=== PATIENT | male | born 1950 | race Caucasian/White ===

== ENCOUNTER → 2017-11-20 12:32 | Outpatient (CLI) | payer OTHER, SELFPAY ==
[2017-11-20 13:39] LABS: Uric Acid 9.5 mg/dL (3.5-8.5)
== END ==
PROVIDERS: PCP Internal Medicine; Visit Provider Podiatrist
DX: G62.1 Alcoholic polyneuropathy (principal); M10.9 Gout, unspecified; M79.671 Pain in right foot
CPT/HCPCS: 36415; 84550

== ENCOUNTER → 2018-05-20 13:40 | Outpatient (CLI) | payer OTHER, SELFPAY | PROVIDERS: PCP Internal Medicine; Visit Provider Internal Medicine | DX: I82.402 Acute embolism and thrombosis of unspecified deep veins of left lower extremity (principal) | CPT/HCPCS: 36415; 85610 ==

== ENCOUNTER → 2018-09-23 12:07 | Outpatient (CLI) | payer OTHER, SELFPAY ==
--- NOTE | 2018-09-23 | DI.RAD.S_ITS ---
PROCEDURE: XR CHEST 2V INDICATIONS: ACUTE BRONCHITIS TECHNIQUE: 2 views of the chest were acquired. COMPARISON: None. FINDINGS: Surgical changes and devices: None. Lungs and pleura: Lungs are clear. No pleural effusions or pneumothorax. Mediastinum: Mediastinal contours are normal. Heart size is normal. Bones and chest wall: No suspicious bony abnormalities. Soft tissues appear unremarkable. IMPRESSION: Normal chest. Dictated by: Jacquelyn Flores M.D. on 09/23/2018 at 14:02 Approved by: Jacquelyn Flores M.D. on 09/23/2018 at 14:02
== END ==
PROVIDERS: PCP Internal Medicine; Visit Provider Internal Medicine
DX: J20.9 Acute bronchitis, unspecified (principal)
CPT/HCPCS: 71046

== ENCOUNTER 2019-08-26 11:49 | Day surgery (SDC) | payer OTHER, SELFPAY ==
--- NOTE | 2019-08-26 | PATH_ITS ---
[facility] Accession Number: [id number] . 01 Material submitted: . PART A: colon - RIGHT COLON BIOPSIES PART B: colon - RIGHT COLON POLYP BIOPSY PART C: colon - TRANSVERSE COLON POLYP X2 PART D: colon - LEFT COLON POLYP BIOPSY X2 PART E: colon - LEFT COLON RANDOM BIOPSIES . 02 Diagnosis: A, E. Right Colon, Left Colon, Random Biopsies: Colonic mucosa with no diagnostic abnormality. Negative for active, chronic, and microscopic colitis. Negative for dysplasia and malignancy. . B. Right Colon, Polyp, Biopsy: Tubular adenoma. . C. Transverse Colon, Polyp x2, Biopsy: Tubular adenoma in 2 of 3 fragments. . D. Left Colon, Polyp x2, Biopsy: Tubular adenoma in 1 of 2 fragments. Benign lymphoid aggregate in 1 fragment. [facility] 08/27/2019 1542 Local . 02 Electronically signed: . Shi Murillo MD, Pathologist NPI- [id number] . 01 Gross description: . Part A: RIGHT COLON BIOPSIES: Received in formalin are 2 fragment(s) of jaeger, soft tissue measuring 0.2 x 0.2 x 0.2 cm to 0.4 x 0.3 x 0.2 cm submitted entirely in 1 cassette(s) Part B: RIGHT COLON POLYP BIOPSY: Received in formalin is 1 fragment(s) of jaeger, soft tissue measuring 0.3 x 0.3 x 0.2 cm submitted entirely in 1 cassette(s) Part C: TRANSVERSE COLON POLYP X2: Received in formalin are 3 fragment(s) of jaeger, soft tissue measuring 0.2 x 0.2 x 0.2 cm to 0.4 x 0.2 x 0.2 cm submitted entirely in 1 cassette(s) Part D: LEFT COLON POLYP BIOPSY X2: Received in formalin are 2 fragment(s) of jaeger, soft tissue measuring 0.1 x 0.1 x 0.1 cm to 0.3 x 0.2 x 0.2 cm submitted entirely in 1 cassette(s) Part E: LEFT COLON RANDOM BIOPSIES: Received in formalin are 3 fragment(s) of jaeger, soft tissue measuring 0.1 x 0.1 x 0.1 cm to 0.5 x 0.3 x 0.2 cm submitted entirely in 1 cassette(s) /[facility] 08/26/2019 2320 Local . 02 Pathologist provided ICD-10: D12.3, D12.6 . 02 CPT . 406059, 224551, [id number], [id number], [id number] Performed at: 01 [facility] [address] [id number] MD Jay Jay Flores MD Phone: [phone] Performed at: 02 [facility] [address] [place], [place] [id number] MD Shi Murillo MD Phone: [phone]
[2019-08-26 12:53] VITALS: BP 136/89; PULSE 73; RESP 17; TEMP 36.4; O2SAT 99; BMI 31.1
[2019-08-26] MEDS: SODIUM CHLORIDE 0.9% 1,000 ML 42 ML IV (13:00)
[2019-08-26] MEDS: MIDAZOLAM 5 MG/5 ML VIAL IV (13:48)
[2019-08-26] MEDS: fentaNYL 250 MCG/5 ML INJ IV (13:48)
--- NOTE | 2019-08-26 14:08 | PM.OP.ENDO ---
Operative Date/Time/Diagnoses Date of procedure: 08/26/19 Pre-op diagnosis: See indication and findings Procedure & Clinicians Study performed: Colonoscopy Same procedure as scheduled: Yes Indications: Loose stools rectal bleeding and history of adenomatous colon polyps Surgeon: Zoran Wray Procedure Notes Procedure in detail: After informed consent was obtained the patient was placed in left lateral decubitus position. The video colonoscope was introduced the rectum slowly advanced. This is passed to just above the IC valve. Cecum could not easily be entered. In addition there was substantial colitis in the right colon and I did not want wish any harder. Scope was then removed. Patient tolerated procedure well. Blood loss none Complications none Sedation Total sedation time 24 minutes Versed 7 mg fentanyl 150 mg IV titration Findings 1. Extensive petechial change throughout the right colon with sparing of the cecum and a small patch also seen in the midtransverse colon. No erosions were seen. While this was not in a ?cat scratch? like pattern is otherwise remind me of the features of that type of finding. Biopsies taken to rule out colitis 2. Random biopsies taken in normal-appearing left and sigmoid colon to rule out colitis 3. 8 mm right colon polyp cold snared removed completely and retrieved 4. Three transverse colon biopsies were seen. These were all removed with Jumbo biopsy forceps Five. Two left-sided colon polyps were seen. Both removed with Jumbo biopsy forceps. We will be following up on biopsy results with the patient. In particular be concerned about possible colitis versus just petechial and hemorrhagic change. His concerns his Coumadin I would really rather hold this for another 2-3 days given the extent of biopsies and polypectomies.
[2019-08-26 14:11] VITALS: BP 112/77; PULSE 81; RESP 12; TEMP 36.2; O2SAT 94
--- NOTE | 2019-08-26 14:13 | PM.HP.1 ---
History of Present Illness History of Present Illness Date Patient Seen: 08/26/19 Chief complaint: [id number] COLONOSCOPY W/POSS BX Narrative: History of adenomatous colon polyps with looser bloody bowel movements. Patient History Family & Social History Social History: household members spouse Tobacco & Substance use: Smoking Status Never smoker alcohol intake current alcohol intake frequency 3 or more drinks per day Substance Use Type marijuana Meds Home Medications and Allergies Home Medications Medication Instructions Recorded Confirmed Type atenolol 50 mg PO DAILY 08/26/19 08/26/19 History febuxostat 80 mg PO DAILY 08/26/19 08/26/19 History furosemide 20 mg PO DAILY 08/26/19 08/26/19 History lisinopril 10 mg PO DAILY 08/26/19 08/26/19 History rosuvastatin 20 mg PO DAILY 08/26/19 08/26/19 History warfarin 5 mg PO DAILY 08/26/19 08/26/19 History Allergies Allergy/AdvReac Type Severity Reaction Status Date / Time allopurinol Allergy Intermediate Verified 08/26/19 12:38 Exam Vital Signs (past 8 hours): - 08/26/19 12:53 Temperature 97.6 F Pulse Rate 73 Respiratory Rate 17 Blood Pressure 136/89 Pulse Oximetry 99 Oxygen Delivery Method Room Air Narrative Exam Narrative: Oropharynx free of lesion Chest clear to auscultation percussion Cardiac exam reveals no S3 or murmur Assessment & Plan Assessment & Plan narrative: History of adenomatous colon polyps need for follow-up colonoscopy for colorectal cancer screening History of loose stools with occasional bloody bowel movement rule out underlying colitis. Risks, benefits, alternatives have been explained. Further recommendations will follow the results of the colonoscopy.
[2019-08-26 14:16] VITALS: BP 104/73; PULSE 77; RESP 13; TEMP 36.4; O2SAT 92
[2019-08-26 14:22] VITALS: BP 97/64; PULSE 81; RESP 18; TEMP 36.4; O2SAT 91
[2019-08-26 14:26] VITALS: BP 96/66; PULSE 94; RESP 25; TEMP 36.4; O2SAT 97
[2019-08-26 14:57] VITALS: BP 110/59; PULSE 89; RESP 22; TEMP 36.6; O2SAT 98
--- NOTE | 2019-08-26 15:48 | SUR.PHASEII ---
Coumadin order claified, pt to take in 3 days and any bleeding needs to be called to the office. Pt voiced an understanding, pt left when ready and left in stable condition.
== END 2019-08-26 15:10 | disposition home or self-care (01) ==
PROVIDERS: PCP Internal Medicine; Referring Provider Internal Medicine; Visit Provider Internal Medicine Gastroenterology
PROC: 0DJD8ZZ Inspection of Lower Intestinal Tract, Via Natural or Artificial Opening Endoscopic (ICD-10-PCS; CPT 45378; principal; 2019-08-26 13:30)
DX: K62.5 Hemorrhage of anus and rectum (principal); R19.7 Diarrhea, unspecified; D12.3 Benign neoplasm of transverse colon; D12.6 Benign neoplasm of colon, unspecified
CPT/HCPCS: 45380; J2250; J3010

== ENCOUNTER → 2020-04-14 16:33 | Outpatient (ROUT) | payer OTHER, SELFPAY ==
[2020-04-14 17:09] LABS: Add Manual Diff / Slide Review NO; Basophils Absolute Auto 0 /uL (0-100); Basophils Percent Auto 0.5 % (0-2); Eosinophils Absolute Auto 200 /uL (0-450); Eosinophils Percent Auto 2.9 % (2-4); Hemoglobin 13.9 g/dL (13.5-17.5); Lymphocytes Absolute Auto 2100 /uL (1100-4500); Lymphocytes Percent Auto 36.2 % (25-40); Mean Corpuscular HGB Conc 33.8 % (30-36); Mean Corpuscular Volume 97.6 fL (80-100); Monocytes Absolute Auto 600 /uL (0-900); Monocytes Percent Auto 10.1 % (3-14); Neutrophils Absolute Auto 3000 /uL (1500-7000); Neutrophils Percent Auto 50.3 % (50-75); Platelet Count 210 X10^3/uL (150-400); Red Cell Distribution Width 13.9 % (11.6-14.8); White Blood Cell Count 5.9 X10^3/uL (4.5-11.0)
[2020-04-14 17:48] LABS: Aspartate Aminotransferase 32 IU/L (17-59); BUN Creatinine Ratio 24.5 (6-22); Blood Urea Nitrogen 35 mg/dL (9-20); Calcium 8.6 mg/dL (8.4-10.2); Carbon Dioxide 28 mmol/L (22-32); Chloride 104 mmol/L (98-107); Cholesterol 179 mg/dL (140-199); Estimated Glomerular Filt Rate 48.8 mL/min (>60); Glucose 99 mg/dL (80-110); HDL Cholesterol 68 mg/dL (40-60); HEMOLYSIS < 15 (0-50); LDL Cholesterol Calculated 63 mg/dL (<100); Potassium 4.8 mmol/L (3.4-5.1); Sodium 137 mmol/L (137-145); Triglycerides 241 mg/dL (35-150); Uric Acid 3.8 mg/dL (3.5-8.5)
[2020-04-14 18:17] LABS: Prostate Specific Antigen 4.13 ng/mL (0.10-4.00)
== END ==
PROVIDERS: PCP Internal Medicine; Visit Provider Internal Medicine
DX: Z86.010 Personal history of colon polyps (principal); I10 Essential (primary) hypertension; E78.2 Mixed hyperlipidemia; N40.0 Benign prostatic hyperplasia without lower urinary tract symptoms; M10.9 Gout, unspecified
CPT/HCPCS: 80048; 80061; 84153; 84450; 84550; 85025

== ENCOUNTER → 2021-03-15 10:56 | Outpatient (CLI) | payer OTHER, SELFPAY ==
--- NOTE | 2021-03-15 | DI.RAD.S_ITS ---
PROCEDURE: XR LUMBAR SPINE 2-3V INDICATIONS: LOW BACK PAIN TECHNIQUE: 3 views of the lumbar spine were acquired. COMPARISON: None. FINDINGS: Bones: There appears to be a transitional element at S1. There is normal bony alignment. Mild wedging of L5, of uncertain acuity. No acute vertebral body compression fractures. No suspicious bony lesions. Multilevel endplate osteophyte formation and facet hypertrophy. Soft tissues: Overlying bowel gas pattern is normal. No suspicious soft tissue calcifications. IMPRESSION: 1. Mild L5 compression fracture of uncertain acuity. Initial further assessment with MRI is recommended. 2. Multilevel degenerative disc and facet disease. 3. Transitional element at S1. Dictated by: Jose F Ruff M.D. on 03/15/2021 at 12:22 Approved by: Jose F Ruff M.D. on 03/15/2021 at 12:23
== END ==
PROVIDERS: PCP Internal Medicine; Referring Provider Internal Medicine; Visit Provider Internal Medicine
DX: M54.5 Low back pain (principal); M48.56XA Collapsed vertebra, not elsewhere classified, lumbar region, initial encounter for fracture; M51.36 Other intervertebral disc degeneration, lumbar region
CPT/HCPCS: 72100

== ENCOUNTER → 2021-06-10 12:34 | Outpatient (CLI) | payer OTHER, SELFPAY ==
--- NOTE | 2021-06-10 | DI.MRI.S_ITS ---
PROCEDURE: MR LUMBAR SPINE WO CON INDICATIONS: Wedge compression fracture of fifth lumbar vertebr TECHNIQUE: Noncontrast sagittal T1 spin echo and T2 fast echo, sagittal STIR, axial T1 and T2 fast spin echo through the lumbar spine. In cases with scoliosis, additional coronal T2 fast spin echo may be performed. COMPARISON: None. FINDINGS: Image quality: Excellent. Alignment and Curvature: There is normal bony alignment. Bones: Acute/subacute L4 compression fracture noted. L4 compression fracture results in approximately 70% loss of normal anterior vertebral body height. Spinal Cord: Conus medullaris terminates at the L1 level. There is a 6 millimeter nodule associated with the cauda equina at the level of the L1-L2 disc. Visualized cord demonstrates normal signal and size. Paraspinous Soft Tissues: No paravertebral masses. T12-L1: Loss of disc signal and slight loss of disc height. Mild, diffuse disc bulge. Mild, bilateral facet hypertrophy. Mild narrowing of the central canal. No neural foraminal narrowing. No neural compression. L1-L2: Loss of disc signal. Mild, diffuse disc bulge. Mild bilateral facet hypertrophy. Mild narrowing of the central canal. No neural foraminal narrowing. No neural compression. L2-L3: Loss of disc signal and height. Moderate, diffuse disc bulge. Mild bilateral facet hypertrophy. Moderate ligamentum flavum hypertrophy. Severe narrowing of the central canal with compression of the nerve roots of the cauda equina. Mild to moderate bilateral neural foraminal narrowing. L3-L4: Loss of disc signal. Mild to moderate diffuse disc bulge. Small central disc protrusion. Mild to moderate bilateral facet hypertrophy. Mild ligamentum flavum hypertrophy. Severe narrowing of the central canal with compression of the nerve roots of the cauda equina. Mild to moderate bilateral neural foraminal narrowing. L4-L5: Loss of disc signal. Minimal, diffuse disc bulge. Severe bilateral facet hypertrophy. Moderate to severe narrowing of the central canal. Mild bilateral neural foraminal narrowing. No neural compression L5-S1: Loss of disc signal and height. Mild to moderate bilateral facet hypertrophy. No central stenosis. Mild bilateral neural foraminal narrowing. No neural compression. IMPRESSION: 1. Acute/subacute L4 compression fracture resulting in approximately 70% loss of normal anterior vertebral body height. 2. Multilevel degenerative disc disease. 3. Multilevel facet arthropathy. 4. Severe L2-L3 and L3-L4 central canal narrowing with compression of the nerve roots of the cauda equina. 5. No severe neural foraminal narrowing. 6. 6 millimeter nodule in the cauda equina at the level of the L1-L2 disc. Lesion may represent nerve sheath tumor such as meningioma or schwannoma or could represent a metastatic lesion. Recommend MRI of the lumbar spine with gadolinium for additional evaluation. Dictated by: Dorota Witt MD, PhD on 06/12/2021 at 8:30 Approved by: Dorota Witt MD, PhD on 06/12/2021 at 9:03
== END ==
PROVIDERS: PCP Internal Medicine; Referring Provider Internal Medicine; Visit Provider Internal Medicine
DX: S32.050D Wedge compression fracture of fifth lumbar vertebra, subsequent encounter for fracture with routine healing (principal); M51.36 Other intervertebral disc degeneration, lumbar region; M47.816 Spondylosis without myelopathy or radiculopathy, lumbar region; M47.817 Spondylosis without myelopathy or radiculopathy, lumbosacral region; M48.061 Spinal stenosis, lumbar region without neurogenic claudication
CPT/HCPCS: 72148

== ENCOUNTER → 2021-09-26 12:37 | Outpatient (CLI) | payer OTHER, SELFPAY | PROVIDERS: Family Provider Internal Medicine; PCP Internal Medicine; Referring Provider Internal Medicine; Visit Provider Internal Medicine | DX: M85.851 Other specified disorders of bone density and structure, right thigh (principal); Z13.820 Encounter for screening for osteoporosis; M84.48XS Pathological fracture, other site, sequela; Z87.311 Personal history of (healed) other pathological fracture | CPT/HCPCS: 77080 ==

== ENCOUNTER 2021-09-29 10:30 | Outpatient (RCR) | payer OTHER, SELFPAY ==
--- NOTE | 2021-08-17 17:36 | PT.OIE ---
Current Diagnoses Postural kyphosis, site unspecified (08/17/21) Muscle weakness (generalized) (08/17/21) Wedge compression fracture of fourth lumbar vertebra, subsequent encounter for fracture with routine healing (08/17/21) Strain of muscle, fascia and tendon of lower back, initial encounter (08/17/21) Visit Care Team Role Provider Type Porter Munoz MD Primary Care Provider Non-Staff Specialty: Internal Medicine Address: [address] [place] [address], [phone] Email: Chris Reyes MD Family Provider Physician Specialty: Internal Medicine Address: [address] [place] [address], [id number] Email: [email or web address] Iglesia Anguiano MD Attending Provider Physician Referring Provider Specialty: Orthopedic Surgery Address: [address] [place] [address], [id number] Email: Physical Therapy Initial Evaluation PT-OP-A Visit Information Start: 08/15/21 18:13 Freq: Status: Active Protocol: Document 08/17/21 10:37 LRN (Rec: 08/17/21 11:27 LRN [id number]) Out-Patient Physical Therapy Visit Information Visit Information Visit Type Initial Evaluation Visit Start Time 10:37 Visit Stop Time 11:24 Total Visit Minutes 47 Visit Number 1 Evaluation Information Evaluation Date 08/17/21 Precautions Precautions Lesion at Caudia Equina at level of L1-L2 discs and compression of nerve roots and severe narrowing of central canal at L2-3, L3-L4. Compression fracture history L4 & L5, and multi-level lumbar DDD. 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 PT-OP-B Current Condition Start: 08/15/21 18:13 Freq: Status: Active Protocol: Document 08/17/21 10:37 LRN (Rec: 08/17/21 11:27 LRN [id number]) Current Condition History of Current Condition Onset Date Mar Current Complaints Discomfort sleeping. History of Current Condition Slipped and fell on tile floor at home landing on buttocks and suffered compression fracture of L5. Was expecting pain to resolve a couple months, but it didn't. Then requested either MRI or PT. Doctor didn't do either. Pain decreased over time but did not go away. Sought further medical intervention due to discomfort at nighttime (sleep disturbed). Was referred to Dr. Anguiano and states MRI showed increased compression of fx and that old fx was healed. No nerve involvement but found spinal stenosis; therefore nerve impingement. Because he has discomfort in the back it's thought the muscles hadn't relaxed; therefore referred to PT to help decrease the pain. Is to return to Dr Anguiano in 1 month. Prior Treatments and Tests X-ray showed L5 compression fracture, multi-level DDD, transitional element at S1. Given Pain meds. MRI showed Acute/subacute L4 compression fracture, multi- level DDD, facet arthropathy, Severe L2-L3 and L3-L4 central canal narrowing with compression of the nerve roots of the cauda equina. 6 millimeter nodule in the cauda equina at the level of the L1 -L2 disc. Lesion may represent nerve sheath tumor such as meningioma or schwannoma or could represent a metastatic lesion. Future Testing and Treatments Planned Dr. Anguiano follow up visit , after 3-4 treatments. Treatment Goals Patient/Caregiver Goals Pt goal is to be able to sleep better. Prior Functional Status Baseline Function- ADL's Independent Baseline Function- Mobility Independent Baseline Function- Other Gets up a couple times a night . Slept solidly for 3 hours at a time, slept for 7-8 hrs. Lifted sacks of garden soil. Current Functional Impairments (Reported) Functional Limitations- ADL's Wakes and turns side to side every hour, 7-8 hrs. Gets up to go to bathroom 3x/ night Avoids lifting things. Personal Factors Other Personal Factors That May Effect Lesion at Caudia Equina at Therapy/Recovery level of L1-L2 discs and compression of nerve roots and severe narrowing of central canal at L2-3, L3-L4. Compression fracture history L4 & L5, and multi-level lumbar DDD. PT-OP-C Subjective Start: 08/15/21 18:13 Freq: Status: Active Protocol: Document 08/17/21 10:37 LRN (Rec: 08/17/21 11:27 LRN [id number]) Patient Questionnaires Oswestry Low Back Index Oswestry Score 4 Oswestry Impairment 1 to 19% Impaired (Score 1-19) OP-PT Pain Assessment Pain Assessment Grid Paper Pain Assessment Grid Completed Yes Location Low back Pain Location Details Across low back at level of iliac crest & sacrum Intensity 1 Scale Used Numeric (0 - 10) Description Aching,Dull Description- Other At nighttime (sleeps side) Frequency Intermittent Pain Duration Once up in morning, lasts for short duration. Other Pain Aggravating Factors Nighttime sleeping, intial standing Other Pain Alleviating Factors Lying sidelie PT-OP-H Neuro Start: 08/15/21 18:13 Freq: Status: Active Protocol: Document 08/17/21 10:37 LRN (Rec: 08/17/21 11:27 LRN [id number]) Sensation Evaluation Gross Sensation Gross Sensation WNL Comments Summary Comments Decreased sensation with tingling in top part & front distal 1/2 of feet and toes. PT-OP-J Posture/Palpation/Skin Start: 08/15/21 18:13 Freq: Status: Active Protocol: Document 08/17/21 10:37 LRN (Rec: 08/17/21 11:27 LRN [id number]) Posture Evaluation Position Standing Head/C-Spine Posture Forward Head T-Spine Posture Increased Kyphosis L-Spine Posture Flattened Shoulder Posture (L) Elevated Pelvis Posture Posterior Tilted Weight Distribution Weight Shifted Left Hip Posture (R) Externally Rotated Comments Posture Comments Sits slumped with R leg extended. Standing: Hips flexed 90 deg' s. Palpation Assessment Location Low Back Palpation Location QL, Posterior Sacrum Palpation Findings Tenderness PT-OP-K Range of Motion Start: 08/15/21 18:13 Freq: Status: Active Protocol: Document 08/17/21 10:37 LRN (Rec: 08/17/21 11:27 LRN [id number]) Lumbar Spine Range of Motion Lumbar Spine Active Degrees Testing Position Standing Flexion 72 Extension 7 Rotation Left 5 Rotation Right 5 Lateral Flexion Left 10 Lateral Flexion Right 10 ROM Limitations Soft Tissue Tightness Comments Trunk Flex is 72 deg's with 65 deg's hip flexion. Trunk Ext is 7 deg's with 7 deg's hip ext. Hip Goniometric Range of Motion Hip Right Passive Testing Position Supine Straight Leg Raise 85 Internal Rotation 35 External Rotation 65 Left Passive Testing Position Supine Straight Leg Raise 75 Internal Rotation 50 External Rotation 40 PT-OP-L Special Tests Start: 08/15/21 18:13 Freq: Status: Active Protocol: Document 08/17/21 10:37 LRN (Rec: 08/17/21 11:27 LRN [id number]) Special Tests Lumbar Spine Special Tests Straight Leg Raise Test Results 85 R, 75 L Hip Special Tests Gustabo Test Results Bilateral: Positive Comments Tight hip flexors bilaterally. PT-OP-M Strength Start: 08/15/21 18:13 Freq: Status: Active Protocol: Document 08/17/21 10:37 LRN (Rec: 08/17/21 11:27 LRN [id number]) Trunk Strength Trunk Manual Muscle Testing Testing Position Sitting Comments Generally 5/5 Hip Strength Hip Manual Muscle Testing Right Abduction 3 Fair Adduction 3 Fair External Rotation 5 Normal Internal Rotation 5 Normal Comments Pain in LB with hip AD MMT Left Abduction 3 Fair Adduction 4 Good External Rotation 5 Normal Internal Rotation 5 Normal Comments Pain in LB with hip AD MMT PT-OP-Q Treatments Start: 08/15/21 18:13 Freq: Status: Active Protocol: Document 08/17/21 10:37 LRN (Rec: 08/17/21 11:27 LRN [id number]) Self-Care/Home Management Treatment Education Other Education Discussed results of evaluation, plan of care and goals. Pt agreeable to plan of care and goals. PT-OP-T Assessment and Plan Start: 08/15/21 18:13 Freq: Status: Active Protocol: Document 08/17/21 10:37 LRN (Rec: 08/17/21 11:27 LRN [id number]) Physical Therapy Assessment Rehab Potential Rehabilitation Potential Good Evaluation Complexity Number of Personal Factors/Comorbidities 1-2 Number of Body Systems Impaired 4 or More Clinical Presentation at Evaluation Evolving Impairments Impairments Activity Tolerance,Pain,ROM, Strength Goals Two Impairment Sleep disturbed, toss and turns every hour. Impairment LBP rated 1/10 at night and on standing after sitting awhile . Short Term Goal (STG) Pt will be educated in different nighttime sleep positions and proper posture to minimize pain at night, as well as proper daily posture in sitting & standing. Senior Living Goal (LTG) Decrease low back pain in sidelie with pt able to sleep for no less than 2 hours at a time for 7-8 hrs total unless waking for reasons other than LBP. One Impairment Pt lacks appropriate self care HEP Short Term Goal (STG) Pt will be educated in proper transfer & body mechanics to minimize onset of LBP. Senior Living Goal (LTG) Pt will be independent in a self care HEP to improve lumbar ext & hip ext mobility, general lumbar/thoracic/hip mobility, and core/hip strengthening. Assessment Summary Assessment Pt presents with mechanical and soft tissue dysfunction of the lumbar spine and bilateral hips. His low back pain may be posturally related , with a flattened lumbar spine and increased kyphosis and forward head positioning. He does have other imaging that would indicate compression of the cauda equina nerve roots and an unknown lesion at L-L2 disc level (see MRI report of 06/10). He has decreased hip mobility in his hip flexors and hip rotators that increases his propensity towards poor posturing. The pt will benefit from skilled physical therapy for mobility ex's for the back and hips; HEP stengthening of core/hips, pt education in proper posturing in all positions, and transfer/body mechanics training. Physical Therapy Plan Frequency and Duration Frequency of Treatment 2x/Week Plan of Care Start Date 08/17/21 Plan of Care End Date 10/16/21 Therapeutic Interventions Therapeutic Interventions Home Exercise Program,Manual Therapy,Neuromuscular Re- education,Patient/Caregiver Education,Self-Care/Home Management,Soft Tissue Mobilization,Therapeutic Activities,Therapeutic Exercises Modalities Cold Pack/Ice Massage,Hot Packs Next Visit Focus/Plan Next Note Type Treatment Note Next Visit Plan Educate in proper transfer & body mechanics to minimize onset of LBP. Educate in different nighttime sleep positions and proper posture to minimize pain at night, as well as proper daily posture in sitting & standing . HEP: Mobility: trunk ext, hip ext, hip ER (L>R), L hip IR and L PSLR. HEP: Strengthening: core, hip (alvina AB, R AD) STM: LB Modalities as needed for pain (ice, heat).
--- NOTE | 2021-08-17 17:37 | PT.OPPOC ---
Physical, Occupational & Speech Therapy At [facility] Current Diagnoses Postural kyphosis, site unspecified (08/17/21) Muscle weakness (generalized) (08/17/21) Wedge compression fracture of fourth lumbar vertebra, subsequent encounter for fracture with routine healing (08/17/21) Strain of muscle, fascia and tendon of lower back, initial encounter (08/17/21) Visit Care Team Role Provider Type Porter Munoz MD Primary Care Provider Non-Staff Specialty: Internal Medicine Address: [address] [place] [address], [id number] Email: Chris Reyes MD Family Provider Physician Specialty: Internal Medicine Address: [address] [place] [address], [id number] Email: [email or web address] Iglesia Anguiano MD Attending Provider Physician Referring Provider Specialty: Orthopedic Surgery Address: [address] [place] [address], [id number] Email: Plan Of Care PT-OP-T Assessment and Plan Start: 08/15/21 18:13 Freq: Status: Active Protocol: Document 08/17/21 10:37 LRN (Rec: 08/17/21 11:27 LRN [id number]) Physical Therapy Assessment Rehab Potential Rehabilitation Potential Good Evaluation Complexity Number of Personal Factors/Comorbidities 1-2 Number of Body Systems Impaired 4 or More Clinical Presentation at Evaluation Evolving Impairments Impairments Activity Tolerance,Pain,ROM, Strength Goals Two Impairment Sleep disturbed, toss and turns every hour. Impairment LBP rated 1/10 at night and on standing after sitting awhile . Short Term Goal (STG) Pt will be educated in different nighttime sleep positions and proper posture to minimize pain at night, as well as proper daily posture in sitting & standing. Home Advisor Goal (LTG) Decrease low back pain in sidelie with pt able to sleep for no less than 2 hours at a time for 7-8 hrs total unless waking for reasons other than LBP. One Impairment Pt lacks appropriate self care HEP Short Term Goal (STG) Pt will be educated in proper transfer & body mechanics to minimize onset of LBP. Senior Care Goal (LTG) Pt will be independent in a self care HEP to improve lumbar ext & hip ext mobility, general lumbar/thoracic/hip mobility, and core/hip strengthening. Assessment Summary Assessment Pt presents with mechanical and soft tissue dysfunction of the lumbar spine and bilateral hips. His low back pain may be posturally related , with a flattened lumbar spine and increased kyphosis and forward head positioning. He does have other imaging that would indicate compression of the cauda equina nerve roots and an unknown lesion at L-L2 disc level (see MRI report of 06/10). He has decreased hip mobility in his hip flexors and hip rotators that increases his propensity towards poor posturing. The pt will benefit from skilled physical therapy for mobility ex's for the back and hips; HEP stengthening of core/hips, pt education in proper posturing in all positions, and transfer/body mechanics training. Physical Therapy Plan Frequency and Duration Frequency of Treatment 2x/Week Plan of Care Start Date 08/17/21 Plan of Care End Date 10/16/21 Therapeutic Interventions Therapeutic Interventions Home Exercise Program,Manual Therapy,Neuromuscular Re- education,Patient/Caregiver Education,Self-Care/Home Management,Soft Tissue Mobilization,Therapeutic Activities,Therapeutic Exercises Modalities Cold Pack/Ice Massage,Hot Packs Next Visit Focus/Plan Next Note Type Treatment Note Next Visit Plan Educate in proper transfer & body mechanics to minimize onset of LBP. Educate in different nighttime sleep positions and proper posture to minimize pain at night, as well as proper daily posture in sitting & standing . HEP: Mobility: trunk ext, hip ext, hip ER (L>R), L hip IR and L PSLR. HEP: Strengthening: core, hip (alvina AB, R AD) STM: LB Modalities as needed for pain (ice, heat). Plan of Care Dates Plan of Care Start Date 08/17/21 Plan of Care End Date 10/16/21 Electronically Signed by: María Wood, PT 08/17/21 0465 Please Sign and Return: I have reviewed this Plan of Care and certify that the skilled therapy services above are required to meet the patient?s needs. Physician Signature Date Printed Name and Credentials Clinical Instructor Signature Printed Name and Credentials
--- NOTE | 2021-08-25 12:55 | PT.OTN ---
Current Diagnoses Postural kyphosis, site unspecified (08/25/21) Muscle weakness (generalized) (08/25/21) Wedge compression fracture of fourth lumbar vertebra, subsequent encounter for fracture with routine healing (08/25/21) Strain of muscle, fascia and tendon of lower back, initial encounter (08/25/21) Physical Therapy Treatment Note PT-OP-A Visit Information Start: 08/15/21 18:13 Freq: Status: Active Protocol: Document 08/25/21 11:57 LRN (Rec: 08/25/21 12:54 LRN [id number]) Out-Patient Physical Therapy Visit Information Visit Information Visit Type Treatment Note Visit Start Time 11:58 Visit Stop Time 12:38 Total Visit Minutes 40 Visit Number 2 Evaluation Information Evaluation Date 08/17/21 Precautions Precautions Lesion at Caudia Equina at level of L1-L2 discs and compression of nerve roots and severe narrowing of central canal at L2-3, L3-L4. Compression fracture history L4 & L5, and multi-level lumbar DDD. 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 PT-OP-B Current Condition Start: 08/15/21 18:13 Freq: Status: Active Protocol: Document 08/17/21 10:37 LRN (Rec: 08/17/21 11:27 LRN [id number]) Current Condition History of Current Condition Onset Date Mar Current Complaints Discomfort sleeping. History of Current Condition Slipped and fell on tile floor at home landing on buttocks and suffered compression fracture of L5. Was expecting pain to resolve a couple months, but it didn't. Then requested either MRI or PT. Doctor didn't do either. Pain decreased over time but did not go away. Sought further medical intervention due to discomfort at nighttime (sleep disturbed). Was referred to Dr. Anguiano and states MRI showed increased compression of fx and that old fx was healed. No nerve involvement but found spinal stenosis; therefore nerve impingement. Because he has discomfort in the back it's thought the muscles hadn't relaxed; therefore referred to PT to help decrease the pain. Is to return to Dr Anguiano in 1 month. Prior Treatments and Tests X-ray showed L5 compression fracture, multi-level DDD, transitional element at S1. Given Pain meds. MRI showed Acute/subacute L4 compression fracture, multi- level DDD, facet arthropathy, Severe L2-L3 and L3-L4 central canal narrowing with compression of the nerve roots of the cauda equina. 6 millimeter nodule in the cauda equina at the level of the L1 -L2 disc. Lesion may represent nerve sheath tumor such as meningioma or schwannoma or could represent a metastatic lesion. Future Testing and Treatments Planned Dr. Anguiano follow up visit , after 3-4 treatments. Treatment Goals Patient/Caregiver Goals Pt goal is to be able to sleep better. Prior Functional Status Baseline Function- ADL's Independent Baseline Function- Mobility Independent Baseline Function- Other Gets up a couple times a night . Slept solidly for 3 hours at a time, slept for 7-8 hrs. Lifted sacks of garden soil. Current Functional Impairments (Reported) Functional Limitations- ADL's Wakes and turns side to side every hour, 7-8 hrs. Gets up to go to bathroom 3x/ night Avoids lifting things. Personal Factors Other Personal Factors That May Effect Lesion at Caudia Equina at Therapy/Recovery level of L1-L2 discs and compression of nerve roots and severe narrowing of central canal at L2-3, L3-L4. Compression fracture history L4 & L5, and multi-level lumbar DDD. PT-OP-C Subjective Start: 08/15/21 18:13 Freq: Status: Active Protocol: Document 08/25/21 11:57 LRN (Rec: 08/25/21 12:54 LRN [id number]) OP-PT Subjective Patient Comments Patient Reported Progress Same PT-OP-H Neuro Start: 08/15/21 18:13 Freq: Status: Active Protocol: Document 08/17/21 10:37 LRN (Rec: 08/17/21 11:27 LRN [id number]) Sensation Evaluation Gross Sensation Gross Sensation WNL Comments Summary Comments Decreased sensation with tingling in top part & front distal 1/2 of feet and toes. PT-OP-J Posture/Palpation/Skin Start: 08/15/21 18:13 Freq: Status: Active Protocol: Document 08/17/21 10:37 LRN (Rec: 08/17/21 11:27 LRN [id number]) Posture Evaluation Position Standing Head/C-Spine Posture Forward Head T-Spine Posture Increased Kyphosis L-Spine Posture Flattened Shoulder Posture (L) Elevated Pelvis Posture Posterior Tilted Weight Distribution Weight Shifted Left Hip Posture (R) Externally Rotated Comments Posture Comments Sits slumped with R leg extended. Standing: Hips flexed 90 deg' s. Palpation Assessment Location Low Back Palpation Location QL, Posterior Sacrum Palpation Findings Tenderness PT-OP-K Range of Motion Start: 08/15/21 18:13 Freq: Status: Active Protocol: Document 08/17/21 10:37 LRN (Rec: 08/17/21 11:27 LRN [id number]) Lumbar Spine Range of Motion Lumbar Spine Active Degrees Testing Position Standing Flexion 72 Extension 7 Rotation Left 5 Rotation Right 5 Lateral Flexion Left 10 Lateral Flexion Right 10 ROM Limitations Soft Tissue Tightness Comments Trunk Flex is 72 deg's with 65 deg's hip flexion. Trunk Ext is 7 deg's with 7 deg's hip ext. Hip Goniometric Range of Motion Hip Right Passive Testing Position Supine Straight Leg Raise 85 Internal Rotation 35 External Rotation 65 Left Passive Testing Position Supine Straight Leg Raise 75 Internal Rotation 50 External Rotation 40 PT-OP-L Special Tests Start: 08/15/21 18:13 Freq: Status: Active Protocol: Document 08/17/21 10:37 LRN (Rec: 08/17/21 11:27 LRN [id number]) Special Tests Lumbar Spine Special Tests Straight Leg Raise Test Results 85 R, 75 L Hip Special Tests Gustabo Test Results Bilateral: Positive Comments Tight hip flexors bilaterally. PT-OP-M Strength Start: 08/15/21 18:13 Freq: Status: Active Protocol: Document 08/17/21 10:37 LRN (Rec: 08/17/21 11:27 LRN [id number]) Trunk Strength Trunk Manual Muscle Testing Testing Position Sitting Comments Generally 5/5 Hip Strength Hip Manual Muscle Testing Right Abduction 3 Fair Adduction 3 Fair External Rotation 5 Normal Internal Rotation 5 Normal Comments Pain in LB with hip AD MMT Left Abduction 3 Fair Adduction 4 Good External Rotation 5 Normal Internal Rotation 5 Normal Comments Pain in LB with hip AD MMT PT-OP-Q Treatments Start: 08/15/21 18:13 Freq: Status: Active Protocol: Document 08/25/21 11:57 LRN (Rec: 08/25/21 12:54 LRN [id number]) Therapeutic Exercises Supine Exercises Bridge Supine Exercise Name Bridge Reps/Minutes 3x Piriformis stretch Supine Exercise Name Piriformis stretch Side bilateral Reps/Minutes 2x left, 1x right Comments Extra time to determine max stretch position Fig 4 stretch Supine Exercise Name Fig 4 stretch f/b active stretch Side bilateral Reps/Minutes 2x left, 1x right Comments Extra time to determine max stretch position Sidelying Exercises Clamshell Sidelying Exercise Name Clamshell Side bilateral Reps/Minutes 15x, 10x Comments Extra time to determine proper postion Standing Exercises Hip flexor stretch Standing Exercise Name Hip Flexor stretch, f/b active stretch Side bilateral Reps/Minutes 1x each Comments Extra time to determine proper stance and max passive & active stretch Other Exercises sit<>supine training Other Exercise Name sit<>supine training Reps/Minutes 5' Sit<>stand training Other Exercise Name Sit<>stand training Reps/Minutes 5' Self-Care/Home Management Treatment Education Patient Education Home Exercise Program Other Education Pt educated and instructions given and practiced for: Transfer training sit<>supine, sit<>stand. Proper body mechanics for bending, squatting, lifting ( front and at sides-moving feet ), and reaching. Educated pt in modifications to positioning to help decrease pain at night ( pillows between knees and support in back). Activities Self-Care/Home Management Activities Issued & reviewed HEP: Stretches: Fig 4, Piriformis stretch (knee to opposite shoulder), lateral hip stretch . Strengthening: Hip AB ( Clamshell). PT-OP-T Assessment and Plan Start: 08/15/21 18:13 Freq: Status: Active Protocol: Document 08/25/21 11:57 LRN (Rec: 08/25/21 12:54 LRN [id number]) Physical Therapy Assessment Goals Two Impairment Sleep disturbed, toss and turns every hour. Impairment LBP rated 1/10 at night and on standing after sitting awhile . Short Term Goal (STG) Pt will be educated in different nighttime sleep positions and proper posture to minimize pain at night, as well as proper daily posture in sitting & standing. STG Duration 08/25/21: MET GOAL Special Needs Caregiver Goal (LTG) Decrease low back pain in sidelie with pt able to sleep for no less than 2 hours at a time for 7-8 hrs total unless waking for reasons other than LBP. One Impairment Pt lacks appropriate self care HEP Short Term Goal (STG) Pt will be educated in proper transfer & body mechanics to minimize onset of LBP. (08/25/21: Transfer training sit<>supine, sit<>stand. Proper body mechanics for bending, squatting, lifting ( front and at sides-moving feet ), and reaching. STG Duration MET GOAL Special Needs Caregiver Goal (LTG) Pt will be independent in a self care HEP to improve lumbar ext & hip ext mobility, general lumbar/thoracic/hip mobility, and core/hip strengthening. (08/25/21: Stretches: Fig 4, Piriformis stretch (knee to opposite shoulder), lateral hip stretch. Strengthening: Hip AB (Clamshell). LTG Duration 08/25/21: Progressed Assessment Summary Assessment Pt has mechanical and soft tissue dysfunction of the lumbar spine and bilateral hips. He was receptive to pt education in proper transfer, sitting posture, nighttime sleeping recommendations, body mechanics education and HEP of hip ROM and strengthening ex's. Pt is very quiet and difficulty to assess comprehension of information. Physical Therapy Plan Next Visit Focus/Plan Next Note Type Treatment Note Next Visit Plan Review transfer sit<>stand<> supine, & and understanding of proper body mechanics, and issued HEP (clamshell, hip ER/ Piriformis stretch). Assess response to recommendations of use of pillow behind back for nighttime comfort, as well as proper daily posture in sitting. Add education of standing posture using wall. HEP: Mobility: trunk ext, hip ext, L PSLR. HEP: Strengthening: core, hip (alvina AB, R AD) STM: LB Modalities as needed for pain (ice, heat).
--- NOTE | 2021-08-29 16:16 | PT.OTN ---
Current Diagnoses Postural kyphosis, site unspecified (08/29/21) Muscle weakness (generalized) (08/29/21) Wedge compression fracture of fourth lumbar vertebra, subsequent encounter for fracture with routine healing (08/29/21) Strain of muscle, fascia and tendon of lower back, initial encounter (08/29/21) Physical Therapy Treatment Note PT-OP-A Visit Information Start: 08/15/21 18:13 Freq: Status: Active Protocol: Document 08/29/21 13:49 LRN (Rec: 08/29/21 14:32 LRN [id number]) Out-Patient Physical Therapy Visit Information Visit Information Visit Type Treatment Note Visit Start Time 13:49 Visit Stop Time 14:29 Total Visit Minutes 40 Visit Number 3 Evaluation Information Evaluation Date 08/17/21 Precautions Precautions Lesion at Caudia Equina at level of L1-L2 discs and compression of nerve roots and severe narrowing of central canal at L2-3, L3-L4. Compression fracture history L4 & L5, and multi-level lumbar DDD. 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 PT-OP-B Current Condition Start: 08/15/21 18:13 Freq: Status: Active Protocol: Document 08/17/21 10:37 LRN (Rec: 08/17/21 11:27 LRN [id number]) Current Condition History of Current Condition Onset Date Mar Current Complaints Discomfort sleeping. History of Current Condition Slipped and fell on tile floor at home landing on buttocks and suffered compression fracture of L5. Was expecting pain to resolve a couple months, but it didn't. Then requested either MRI or PT. Doctor didn't do either. Pain decreased over time but did not go away. Sought further medical intervention due to discomfort at nighttime (sleep disturbed). Was referred to Dr. Anguiano and states MRI showed increased compression of fx and that old fx was healed. No nerve involvement but found spinal stenosis; therefore nerve impingement. Because he has discomfort in the back it's thought the muscles hadn't relaxed; therefore referred to PT to help decrease the pain. Is to return to Dr Anguiano in 1 month. Prior Treatments and Tests X-ray showed L5 compression fracture, multi-level DDD, transitional element at S1. Given Pain meds. MRI showed Acute/subacute L4 compression fracture, multi- level DDD, facet arthropathy, Severe L2-L3 and L3-L4 central canal narrowing with compression of the nerve roots of the cauda equina. 6 millimeter nodule in the cauda equina at the level of the L1 -L2 disc. Lesion may represent nerve sheath tumor such as meningioma or schwannoma or could represent a metastatic lesion. Future Testing and Treatments Planned Dr. Anguiano follow up visit , after 3-4 treatments. Treatment Goals Patient/Caregiver Goals Pt goal is to be able to sleep better. Prior Functional Status Baseline Function- ADL's Independent Baseline Function- Mobility Independent Baseline Function- Other Gets up a couple times a night . Slept solidly for 3 hours at a time, slept for 7-8 hrs. Lifted sacks of garden soil. Current Functional Impairments (Reported) Functional Limitations- ADL's Wakes and turns side to side every hour, 7-8 hrs. Gets up to go to bathroom 3x/ night Avoids lifting things. Personal Factors Other Personal Factors That May Effect Lesion at Caudia Equina at Therapy/Recovery level of L1-L2 discs and compression of nerve roots and severe narrowing of central canal at L2-3, L3-L4. Compression fracture history L4 & L5, and multi-level lumbar DDD. PT-OP-C Subjective Start: 08/15/21 18:13 Freq: Status: Active Protocol: Document 08/29/21 13:49 LRN (Rec: 08/29/21 16:02 LRN [id number]) OP-PT Subjective Patient Comments Patient Reported Progress Same PT-OP-H Neuro Start: 08/15/21 18:13 Freq: Status: Active Protocol: Document 08/17/21 10:37 LRN (Rec: 08/17/21 11:27 LRN [id number]) Sensation Evaluation Gross Sensation Gross Sensation WNL Comments Summary Comments Decreased sensation with tingling in top part & front distal 1/2 of feet and toes. PT-OP-J Posture/Palpation/Skin Start: 08/15/21 18:13 Freq: Status: Active Protocol: Document 08/17/21 10:37 LRN (Rec: 08/17/21 11:27 LRN [id number]) Posture Evaluation Position Standing Head/C-Spine Posture Forward Head T-Spine Posture Increased Kyphosis L-Spine Posture Flattened Shoulder Posture (L) Elevated Pelvis Posture Posterior Tilted Weight Distribution Weight Shifted Left Hip Posture (R) Externally Rotated Comments Posture Comments Sits slumped with R leg extended. Standing: Hips flexed 90 deg' s. Palpation Assessment Location Low Back Palpation Location QL, Posterior Sacrum Palpation Findings Tenderness PT-OP-K Range of Motion Start: 08/15/21 18:13 Freq: Status: Active Protocol: Document 08/17/21 10:37 LRN (Rec: 08/17/21 11:27 LRN [id number]) Lumbar Spine Range of Motion Lumbar Spine Active Degrees Testing Position Standing Flexion 72 Extension 7 Rotation Left 5 Rotation Right 5 Lateral Flexion Left 10 Lateral Flexion Right 10 ROM Limitations Soft Tissue Tightness Comments Trunk Flex is 72 deg's with 65 deg's hip flexion. Trunk Ext is 7 deg's with 7 deg's hip ext. Hip Goniometric Range of Motion Hip Right Passive Testing Position Supine Straight Leg Raise 85 Internal Rotation 35 External Rotation 65 Left Passive Testing Position Supine Straight Leg Raise 75 Internal Rotation 50 External Rotation 40 PT-OP-L Special Tests Start: 08/15/21 18:13 Freq: Status: Active Protocol: Document 08/17/21 10:37 LRN (Rec: 08/17/21 11:27 LRN [id number]) Special Tests Lumbar Spine Special Tests Straight Leg Raise Test Results 85 R, 75 L Hip Special Tests Gustabo Test Results Bilateral: Positive Comments Tight hip flexors bilaterally. PT-OP-M Strength Start: 08/15/21 18:13 Freq: Status: Active Protocol: Document 08/17/21 10:37 LRN (Rec: 08/17/21 11:27 LRN [id number]) Trunk Strength Trunk Manual Muscle Testing Testing Position Sitting Comments Generally 5/5 Hip Strength Hip Manual Muscle Testing Right Abduction 3 Fair Adduction 3 Fair External Rotation 5 Normal Internal Rotation 5 Normal Comments Pain in LB with hip AD MMT Left Abduction 3 Fair Adduction 4 Good External Rotation 5 Normal Internal Rotation 5 Normal Comments Pain in LB with hip AD MMT PT-OP-Q Treatments Start: 08/15/21 18:13 Freq: Status: Active Protocol: Document 08/29/21 13:49 LRN (Rec: 08/29/21 14:32 LRN [id number]) Therapeutic Exercises Supine Exercises Chest breathing Supine Exercise Name TA tight w/Chest breathing Reps/Minutes 15' Comments Much phy cuing at the chest to breath into and at belly to hold TA Sidelying Exercises TA tightening Sidelying Exercise Name TA tightening Side bilateral Reps/Minutes 9' Comments Phys cuing at abdomen and v cuing needed Clamshell Sidelying Exercise Name Clamshell Side bilateral Reps/Minutes 15x 2 Comments Cuing needed for abdominal tightening. Sitting Exercises Hip ER stretch Sitting Exercise Name Hip ER stretch Side bilateral Reps/Minutes 60 Comments Phys & V cuing needed to avoid overstretching. Standing Exercises Hip flexor stretch Standing Exercise Name Hip Flexor stretch, f/b active stretch Side bilateral Reps/Minutes 60 x 1 each Comments Extra time to determine proper stance and max passive & active stretch Other Exercises 4 pt Other Exercise Name On hands/knees for TA tightening Reps/Minutes 3' Comments Phys & v cuing needed for TA holding and chest breathing. sit<>supine training Other Exercise Name sit<>supine training Reps/Minutes 1' Self-Care/Home Management Treatment Education Caregiver Education Pt educated in TA tightening and awareness training of how it feels to tighten TA. Issued Handout explaining TA tightening and anatomy. PT-OP-T Assessment and Plan Start: 08/15/21 18:13 Freq: Status: Active Protocol: Document 08/29/21 13:49 LRN (Rec: 08/29/21 14:32 LRN [id number]) Physical Therapy Assessment Goals Two Impairment Sleep disturbed, toss and turns every hour. Impairment LBP rated 1/10 at night and on standing after sitting awhile . Short Term Goal (STG) Pt will be educated in different nighttime sleep positions and proper posture to minimize pain at night, as well as proper daily posture in sitting & standing. STG Duration 08/25/21: MET GOAL Lens Blocker Goal (LTG) Decrease low back pain in sidelie with pt able to sleep for no less than 2 hours at a time for 7-8 hrs total unless waking for reasons other than LBP. One Impairment Pt lacks appropriate self care HEP Short Term Goal (STG) Pt will be educated in proper transfer & body mechanics to minimize onset of LBP. (08/25/21: Transfer training sit<>supine, sit<>stand. Proper body mechanics for bending, squatting, lifting ( front and at sides-moving feet ), and reaching. STG Duration MET GOAL Long-Term Goal (LTG) Pt will be independent in a self care HEP to improve lumbar ext & hip ext mobility, general lumbar/thoracic/hip mobility, and core/hip strengthening. (08/25/21: Stretches: Fig 4, Piriformis stretch (knee to opposite shoulder), lateral hip stretch. Strengthening: Hip AB (Clamshell). (08/29/21: Added I/S for TA tightening with HO issued for TA for awareness). LTG Duration 08/25/21: Progressed Assessment Summary Assessment Pt is doing well with proper transfer techniques. He has poor core awareness and poor core control. He is able to automatically contract TA with basilio,basilio sounds, but not with light cough. He is not able to maintain core stability while breathing and clamshell ex. He showed some improvement in ability to stabilize core with light breathing after training. Pt needed much training for proper performance of his home ex's (clamshell and standing hip flexor stretch). His low back pain is due to mechanical and soft tissue dysfunction of the lumbar spine and bilateral hips. Posturally his kyphosis and flattening of his low back accentuates his LBP as well as his changes at caudia equina and lumbar spine (see precautions above). Physical Therapy Plan Frequency and Duration Frequency of Treatment 2x/Week Plan of Care Start Date 08/17/21 Plan of Care End Date 10/16/21 Next Visit Focus/Plan Next Note Type Treatment Note Next Visit Plan Review transfer sit<>stand, & and understanding of proper body mechanics. Review Piriformis stretch (sup & sit), Assess response to recommendations of use of pillow behind back for nighttime comfort, as well as proper daily posture in sitting. Add education of standing posture using wall. HEP: Mobility: trunk ext, hip ext, L PSLR. HEP: Strengthening: core, hip (alvina AB, R AD) STM: LB Modalities as needed for pain (ice, heat).
--- NOTE | 2021-08-31 17:58 | PT.OTN ---
Current Diagnoses Postural kyphosis, site unspecified (08/31/21) Muscle weakness (generalized) (08/31/21) Wedge compression fracture of fourth lumbar vertebra, subsequent encounter for fracture with routine healing (08/31/21) Strain of muscle, fascia and tendon of lower back, initial encounter (08/31/21) Physical Therapy Treatment Note PT-OP-A Visit Information Start: 08/15/21 18:13 Freq: Status: Active Protocol: Document 08/31/21 09:57 LRN (Rec: 08/31/21 10:40 LRN [id number]) Out-Patient Physical Therapy Visit Information Visit Information Visit Type Treatment Note Visit Start Time 09:57 Visit Stop Time 10:39 Total Visit Minutes 42 Visit Number 4 Evaluation Information Evaluation Date 08/17/21 Precautions Precautions Lesion at Caudia Equina at level of L1-L2 discs and compression of nerve roots and severe narrowing of central canal at L2-3, L3-L4. Compression fracture history L4 & L5, and multi-level lumbar DDD. 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 PT-OP-B Current Condition Start: 08/15/21 18:13 Freq: Status: Active Protocol: Document 08/17/21 10:37 LRN (Rec: 08/17/21 11:27 LRN [id number]) Current Condition History of Current Condition Onset Date Mar Current Complaints Discomfort sleeping. History of Current Condition Slipped and fell on tile floor at home landing on buttocks and suffered compression fracture of L5. Was expecting pain to resolve a couple months, but it didn't. Then requested either MRI or PT. Doctor didn't do either. Pain decreased over time but did not go away. Sought further medical intervention due to discomfort at nighttime (sleep disturbed). Was referred to Dr. Anguiano and states MRI showed increased compression of fx and that old fx was healed. No nerve involvement but found spinal stenosis; therefore nerve impingement. Because he has discomfort in the back it's thought the muscles hadn't relaxed; therefore referred to PT to help decrease the pain. Is to return to Dr Anguiano in 1 month. Prior Treatments and Tests X-ray showed L5 compression fracture, multi-level DDD, transitional element at S1. Given Pain meds. MRI showed Acute/subacute L4 compression fracture, multi- level DDD, facet arthropathy, Severe L2-L3 and L3-L4 central canal narrowing with compression of the nerve roots of the cauda equina. 6 millimeter nodule in the cauda equina at the level of the L1 -L2 disc. Lesion may represent nerve sheath tumor such as meningioma or schwannoma or could represent a metastatic lesion. Future Testing and Treatments Planned Dr. Anguiano follow up visit , after 3-4 treatments. Treatment Goals Patient/Caregiver Goals Pt goal is to be able to sleep better. Prior Functional Status Baseline Function- ADL's Independent Baseline Function- Mobility Independent Baseline Function- Other Gets up a couple times a night . Slept solidly for 3 hours at a time, slept for 7-8 hrs. Lifted sacks of garden soil. Current Functional Impairments (Reported) Functional Limitations- ADL's Wakes and turns side to side every hour, 7-8 hrs. Gets up to go to bathroom 3x/ night Avoids lifting things. Personal Factors Other Personal Factors That May Effect Lesion at Caudia Equina at Therapy/Recovery level of L1-L2 discs and compression of nerve roots and severe narrowing of central canal at L2-3, L3-L4. Compression fracture history L4 & L5, and multi-level lumbar DDD. PT-OP-C Subjective Start: 08/15/21 18:13 Freq: Status: Active Protocol: Document 08/31/21 09:57 LRN (Rec: 08/31/21 10:40 LRN [id number]) OP-PT Subjective Patient Comments Patient Comments Yesterday noticed L anterior hip pain rated 2-3/10. Feels it when tyring to pull in the stomach. Feels L anterior hip pain worst in L sidelie and least in supine. PT-OP-H Neuro Start: 08/15/21 18:13 Freq: Status: Active Protocol: Document 08/17/21 10:37 LRN (Rec: 08/17/21 11:27 LRN [id number]) Sensation Evaluation Gross Sensation Gross Sensation WNL Comments Summary Comments Decreased sensation with tingling in top part & front distal 1/2 of feet and toes. PT-OP-J Posture/Palpation/Skin Start: 08/15/21 18:13 Freq: Status: Active Protocol: Document 08/17/21 10:37 LRN (Rec: 08/17/21 11:27 LRN [id number]) Posture Evaluation Position Standing Head/C-Spine Posture Forward Head T-Spine Posture Increased Kyphosis L-Spine Posture Flattened Shoulder Posture (L) Elevated Pelvis Posture Posterior Tilted Weight Distribution Weight Shifted Left Hip Posture (R) Externally Rotated Comments Posture Comments Sits slumped with R leg extended. Standing: Hips flexed 90 deg' s. Palpation Assessment Location Low Back Palpation Location QL, Posterior Sacrum Palpation Findings Tenderness PT-OP-K Range of Motion Start: 08/15/21 18:13 Freq: Status: Active Protocol: Document 08/17/21 10:37 LRN (Rec: 08/17/21 11:27 LRN [id number]) Lumbar Spine Range of Motion Lumbar Spine Active Degrees Testing Position Standing Flexion 72 Extension 7 Rotation Left 5 Rotation Right 5 Lateral Flexion Left 10 Lateral Flexion Right 10 ROM Limitations Soft Tissue Tightness Comments Trunk Flex is 72 deg's with 65 deg's hip flexion. Trunk Ext is 7 deg's with 7 deg's hip ext. Hip Goniometric Range of Motion Hip Right Passive Testing Position Supine Straight Leg Raise 85 Internal Rotation 35 External Rotation 65 Left Passive Testing Position Supine Straight Leg Raise 75 Internal Rotation 50 External Rotation 40 PT-OP-L Special Tests Start: 08/15/21 18:13 Freq: Status: Active Protocol: Document 08/17/21 10:37 LRN (Rec: 08/17/21 11:27 LRN [id number]) Special Tests Lumbar Spine Special Tests Straight Leg Raise Test Results 85 R, 75 L Hip Special Tests Gustabo Test Results Bilateral: Positive Comments Tight hip flexors bilaterally. PT-OP-M Strength Start: 08/15/21 18:13 Freq: Status: Active Protocol: Document 08/17/21 10:37 LRN (Rec: 08/17/21 11:27 LRN [id number]) Trunk Strength Trunk Manual Muscle Testing Testing Position Sitting Comments Generally 5/5 Hip Strength Hip Manual Muscle Testing Right Abduction 3 Fair Adduction 3 Fair External Rotation 5 Normal Internal Rotation 5 Normal Comments Pain in LB with hip AD MMT Left Abduction 3 Fair Adduction 4 Good External Rotation 5 Normal Internal Rotation 5 Normal Comments Pain in LB with hip AD MMT PT-OP-Q Treatments Start: 08/15/21 18:13 Freq: Status: Active Protocol: Document 08/31/21 09:57 LRN (Rec: 08/31/21 10:40 LRN [id number]) Therapeutic Exercises Supine Exercises Chest breathing Supine Exercise Name TA tight w/Chest breathing Reps/Minutes 15' Comments Pt able to get chest excursion with breathing and auto TA contraction Bridge Supine Exercise Name MINI Bridge Reps/Minutes 10x Comments V cuing needed for proper breathing- no pain noted Piriformis stretch Supine Exercise Name Gentle Piriformis stretch Side bilateral Reps/Minutes 2x left, 1x right Fig 4 stretch Supine Exercise Name HOLD due to L ASIS pain Self-Care/Home Management Treatment Education Patient Education Pain Management Other Education Educated pt in use of CP at the R anterior hip to reduce pain. Educated at length, pt in proper body mechanics for daily activities, with handout reviewed and issued. Educated pt in Proper Posture & Dickey to Safe Movement, with handout issued. Discussed effects to the back on proper posture and different positions. Activities Self-Care/Home Management Activities I/S pt to hold on ex's and to focus on pain relief with use of ice at home. CP used on R anterior hip during pt education of proper body mechanics and proper posturing. PT-OP-R Modalities Start: 08/15/21 18:13 Freq: Status: Active Protocol: Document 08/31/21 09:57 LRN (Rec: 08/31/21 17:57 LRN [id number]) Hot Pack/Cold Pack Treatment Cold Pack Location R ASIS Patient Position Hooklying Treatment Duration (minutes) 15 Comments Cold Pack given during pt education treatment. PT-OP-T Assessment and Plan Start: 08/15/21 18:13 Freq: Status: Active Protocol: Document 08/31/21 09:57 LRN (Rec: 08/31/21 10:40 N [id number]) Physical Therapy Assessment Goals Two Impairment Sleep disturbed, toss and turns every hour. Impairment LBP rated 1/10 at night and on standing after sitting awhile . Short Term Goal (STG) Pt will be educated in different nighttime sleep positions and proper posture to minimize pain at night, as well as proper daily posture in sitting & standing. STG Duration 08/25/21: MET GOAL Mcfp Goal (LTG) Decrease low back pain in sidelie with pt able to sleep for no less than 2 hours at a time for 7-8 hrs total unless waking for reasons other than LBP. One Impairment Pt lacks appropriate self care HEP Short Term Goal (STG) Pt will be educated in proper transfer & body mechanics to minimize onset of LBP. (08/25/21: Transfer training sit<>supine, sit<>stand. Proper body mechanics for bending, squatting, lifting ( front and at sides-moving feet ), and reaching. STG Duration MET GOAL Mcfp Goal (LTG) Pt will be independent in a self care HEP to improve lumbar ext & hip ext mobility, general lumbar/thoracic/hip mobility, and core/hip strengthening. (08/25/21: Stretches: Fig 4, Piriformis stretch (knee to opposite shoulder), lateral hip stretch. Strengthening: Hip AB (Clamshell). (08/29/21: Added I/S for TA tightening with HO issued for TA for awareness). LTG Duration 08/25/21: Progressed Assessment Summary Assessment Pt having pain in the R anterior hip, but no complaints of LBP. Pt may have possible inflammation at R ASIS due to strain from TA strengthening ex's, although his pain did not start until the day after his therapy appointment. His pain is most notable in R sidelie and less in supine when a TA contraction is performed. Pain may possibly be due to lumbar involvement. He doesn' t have significant pain with hip flexion. Pt breathing has improved with ability to hold a TA with core stabilized during breathing. The pt was receptive to education informatioi on posture and stress on the low back. Pt is to increase use of ice at the R ASIS to help reduce pain. Physical Therapy Plan Frequency and Duration Frequency of Treatment 2x/Week Plan of Care Start Date 08/17/21 Plan of Care End Date 10/16/21 Next Visit Focus/Plan Next Note Type Treatment Note Next Visit Plan (note: caution L4 compr fx hx & caudia equina L1-L2 disc lesion) Review transfer sit<> stand, & and understanding of proper body mechanics. Review Piriformis stretch (sup & sit) if pain in R ASIS is decreased, Assess response to recommendations of use of pillow behind back for nighttime comfort, as well as proper daily posture in sitting. Add education of standing posture using wall. HEP: Mobility: trunk ext, hip ext, L PSLR. HEP: Strengthening: core, hip (alvina AB, R AD) STM: LB Modalities as needed for pain (ice, heat).
--- NOTE | 2021-09-04 16:16 | PT.OTN ---
Current Diagnoses Postural kyphosis, site unspecified (09/04/21) Muscle weakness (generalized) (09/04/21) Wedge compression fracture of fourth lumbar vertebra, subsequent encounter for fracture with routine healing (09/04/21) Strain of muscle, fascia and tendon of lower back, initial encounter (09/04/21) Physical Therapy Treatment Note PT-OP-A Visit Information Start: 08/15/21 18:13 Freq: Status: Active Protocol: Document 09/04/21 10:35 LRN (Rec: 09/04/21 12:25 LRN [id number]) Out-Patient Physical Therapy Visit Information Visit Information Visit Type Treatment Note Visit Start Time 10:35 Visit Stop Time 11:17 Total Visit Minutes 42 Visit Number 5 Evaluation Information Evaluation Date 08/17/21 Precautions Precautions Lesion at Caudia Equina at level of L1-L2 discs and compression of nerve roots and severe narrowing of central canal at L2-3, L3-L4. Compression fracture history L4 & L5, and multi-level lumbar DDD. 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 PT-OP-B Current Condition Start: 08/15/21 18:13 Freq: Status: Active Protocol: Document 08/17/21 10:37 LRN (Rec: 08/17/21 11:27 LRN [id number]) Current Condition History of Current Condition Onset Date Mar Current Complaints Discomfort sleeping. History of Current Condition Slipped and fell on tile floor at home landing on buttocks and suffered compression fracture of L5. Was expecting pain to resolve a couple months, but it didn't. Then requested either MRI or PT. Doctor didn't do either. Pain decreased over time but did not go away. Sought further medical intervention due to discomfort at nighttime (sleep disturbed). Was referred to Dr. Anguiano and states MRI showed increased compression of fx and that old fx was healed. No nerve involvement but found spinal stenosis; therefore nerve impingement. Because he has discomfort in the back it's thought the muscles hadn't relaxed; therefore referred to PT to help decrease the pain. Is to return to Dr Anguiano in 1 month. Prior Treatments and Tests X-ray showed L5 compression fracture, multi-level DDD, transitional element at S1. Given Pain meds. MRI showed Acute/subacute L4 compression fracture, multi- level DDD, facet arthropathy, Severe L2-L3 and L3-L4 central canal narrowing with compression of the nerve roots of the cauda equina. 6 millimeter nodule in the cauda equina at the level of the L1 -L2 disc. Lesion may represent nerve sheath tumor such as meningioma or schwannoma or could represent a metastatic lesion. Future Testing and Treatments Planned Dr. Anguiano follow up visit , after 3-4 treatments. Treatment Goals Patient/Caregiver Goals Pt goal is to be able to sleep better. Prior Functional Status Baseline Function- ADL's Independent Baseline Function- Mobility Independent Baseline Function- Other Gets up a couple times a night . Slept solidly for 3 hours at a time, slept for 7-8 hrs. Lifted sacks of garden soil. Current Functional Impairments (Reported) Functional Limitations- ADL's Wakes and turns side to side every hour, 7-8 hrs. Gets up to go to bathroom 3x/ night Avoids lifting things. Personal Factors Other Personal Factors That May Effect Lesion at Caudia Equina at Therapy/Recovery level of L1-L2 discs and compression of nerve roots and severe narrowing of central canal at L2-3, L3-L4. Compression fracture history L4 & L5, and multi-level lumbar DDD. PT-OP-C Subjective Start: 08/15/21 18:13 Freq: Status: Active Protocol: Document 09/04/21 10:35 LRN (Rec: 09/04/21 12:25 LRN [id number]) OP-PT Subjective Patient Comments Patient Comments No pain in front of hips anymore. No changes. PT-OP-H Neuro Start: 08/15/21 18:13 Freq: Status: Active Protocol: Document 08/17/21 10:37 LRN (Rec: 08/17/21 11:27 LRN [id number]) Sensation Evaluation Gross Sensation Gross Sensation WNL Comments Summary Comments Decreased sensation with tingling in top part & front distal 1/2 of feet and toes. PT-OP-J Posture/Palpation/Skin Start: 08/15/21 18:13 Freq: Status: Active Protocol: Document 08/17/21 10:37 LRN (Rec: 08/17/21 11:27 LRN [id number]) Posture Evaluation Position Standing Head/C-Spine Posture Forward Head T-Spine Posture Increased Kyphosis L-Spine Posture Flattened Shoulder Posture (L) Elevated Pelvis Posture Posterior Tilted Weight Distribution Weight Shifted Left Hip Posture (R) Externally Rotated Comments Posture Comments Sits slumped with R leg extended. Standing: Hips flexed 90 deg' s. Palpation Assessment Location Low Back Palpation Location QL, Posterior Sacrum Palpation Findings Tenderness PT-OP-K Range of Motion Start: 08/15/21 18:13 Freq: Status: Active Protocol: Document 08/17/21 10:37 LRN (Rec: 08/17/21 11:27 LRN [id number]) Lumbar Spine Range of Motion Lumbar Spine Active Degrees Testing Position Standing Flexion 72 Extension 7 Rotation Left 5 Rotation Right 5 Lateral Flexion Left 10 Lateral Flexion Right 10 ROM Limitations Soft Tissue Tightness Comments Trunk Flex is 72 deg's with 65 deg's hip flexion. Trunk Ext is 7 deg's with 7 deg's hip ext. Hip Goniometric Range of Motion Hip Right Passive Testing Position Supine Straight Leg Raise 85 Internal Rotation 35 External Rotation 65 Left Passive Testing Position Supine Straight Leg Raise 75 Internal Rotation 50 External Rotation 40 PT-OP-L Special Tests Start: 08/15/21 18:13 Freq: Status: Active Protocol: Document 08/17/21 10:37 LRN (Rec: 08/17/21 11:27 LRN [id number]) Special Tests Lumbar Spine Special Tests Straight Leg Raise Test Results 85 R, 75 L Hip Special Tests Gustabo Test Results Bilateral: Positive Comments Tight hip flexors bilaterally. PT-OP-M Strength Start: 08/15/21 18:13 Freq: Status: Active Protocol: Document 08/17/21 10:37 LRN (Rec: 08/17/21 11:27 LRN [id number]) Trunk Strength Trunk Manual Muscle Testing Testing Position Sitting Comments Generally 5/5 Hip Strength Hip Manual Muscle Testing Right Abduction 3 Fair Adduction 3 Fair External Rotation 5 Normal Internal Rotation 5 Normal Comments Pain in LB with hip AD MMT Left Abduction 3 Fair Adduction 4 Good External Rotation 5 Normal Internal Rotation 5 Normal Comments Pain in LB with hip AD MMT PT-OP-Q Treatments Start: 08/15/21 18:13 Freq: Status: Active Protocol: Document 09/04/21 10:35 LRN (Rec: 09/04/21 12:25 LRN [id number]) Therapeutic Exercises Supine Exercises Trunk rot Supine Exercise Name Trunk rot strengthening with Arms moving side to side Side bilateral Chest breathing Supine Exercise Name TA tight w/Chest breathing Reps/Minutes 10' Comments Pt able to get chest excursion with breathing and auto TA contraction Sidelying Exercises TA tightening Sidelying Exercise Name TA tightening Side bilateral Reps/Minutes 9' Comments Phys cuing at abdomen and v cuing needed Clamshell Sidelying Exercise Name Clamshell Side bilateral Reps/Minutes 10x, 20x Comments Cuing needed for abdominal tightening. Sitting Exercises Trunk Rot Sitting Exercise Name Trunk Rot Side bilateral Reps/Minutes 3' Hip ER stretch Sitting Exercise Name Hip ER stretch Side bilateral Reps/Minutes 60 x 2 each Comments Phys & V cuing needed to avoid overstretching. Standing Exercises Thoracic ext Standing Exercise Name Humberto arm ext holding hands. Side bilateral Reps/Minutes 10 x 10 Wall standing for posture Standing Exercise Name Postural training Reps/Minutes 3' Hip flexor stretch Standing Exercise Name Hip flexor stretch, back leg not past front foot heel Reps/Minutes 5' Comments Much cuing and training to keep pt from having LBP or anterior hip pain. PT-OP-R Modalities Start: 08/15/21 18:13 Freq: Status: Active Protocol: Document 08/31/21 09:57 LRN (Rec: 08/31/21 17:57 LRN [id number]) Hot Pack/Cold Pack Treatment Cold Pack Location R ASIS Patient Position Hooklying Treatment Duration (minutes) 15 Comments Cold Pack given during pt education treatment. PT-OP-T Assessment and Plan Start: 08/15/21 18:13 Freq: Status: Active Protocol: Document 09/04/21 10:35 LRN (Rec: 09/04/21 12:25 LRN [id number]) Physical Therapy Assessment Goals Two Impairment Sleep disturbed, toss and turns every hour. Impairment LBP rated 1/10 at night and on standing after sitting awhile . Short Term Goal (STG) Pt will be educated in different nighttime sleep positions and proper posture to minimize pain at night, as well as proper daily posture in sitting & standing. STG Duration 08/25/21: MET GOAL Senior Care Goal (LTG) Decrease low back pain in sidelie with pt able to sleep for no less than 2 hours at a time for 7-8 hrs total unless waking for reasons other than LBP. One Impairment Pt lacks appropriate self care HEP Short Term Goal (STG) Pt will be educated in proper transfer & body mechanics to minimize onset of LBP. (08/25/21: Transfer training sit<>supine, sit<>stand. Proper body mechanics for bending, squatting, lifting ( front and at sides-moving feet ), and reaching. STG Duration MET GOAL Senior Care Goal (LTG) Pt will be independent in a self care HEP to improve lumbar ext & hip ext mobility, general lumbar/thoracic/hip mobility, and core/hip strengthening. (08/25/21: Stretches: Fig 4, Piriformis stretch (knee to opposite shoulder), lateral hip stretch. Strengthening: Hip AB (Clamshell). (08/29/21: Added I/S for TA tightening with HO issued for TA for awareness). LTG Duration 08/25/21: Progressed Assessment Summary Assessment Pt able to transfer with good log roll technique, but it is questionable whether the pt is doing log roll transfers at home. He has no questions regarding proper ADL body mechanics. Pt has poor core control or weak hip ER's preventing stable core during exercise. Pt not able to hold TA during breathing and needed training to move through chest while breathing rather than releaseing TA. Poor trunk rot engaging with supine arm swings side to side , better response in sitting. Pt appears to only be doing the ex's that are progressed and has stopped his previous ex's; therefore his progress will be slow. Postural training against the wall was helpful while against the wall , but pt has poor awareness when not against the wall. He doesn't appears to have good follow through with proper posturing once away from the wall. Pt reports he has good posture at his computer and previously reported he will not use a pillow behind him at nighttime to rest against for his LBP. Pt not having R ASIS pain, but is reproduced with R hip ext and palpation of R QL lateral border, indicating involvement with Ilipsoas and Quadratus lumborum. Physical Therapy Plan Next Visit Focus/Plan Next Note Type Treatment Note Next Visit Plan (note: caution L4 compr fx hx & caudia equina L1-L2 disc lesion) Review transfer sit<>stand and postural training. HEP: Strengthening: core, hip (humberto AB, R AD) HEP: Gentle progression of stretch of Ilipsoas and Quadratus lumborum. STM: LB Modalities as needed for pain (ice, heat).
--- NOTE | 2021-09-11 14:16 | PT.OTN ---
Current Diagnoses Postural kyphosis, site unspecified (09/11/21) Muscle weakness (generalized) (09/11/21) Wedge compression fracture of fourth lumbar vertebra, subsequent encounter for fracture with routine healing (09/11/21) Strain of muscle, fascia and tendon of lower back, initial encounter (09/11/21) Physical Therapy Treatment Note PT-OP-A Visit Information Start: 08/15/21 18:13 Freq: Status: Active Protocol: Document 09/11/21 10:38 LRN (Rec: 09/11/21 11:21 LRN [id number]) Out-Patient Physical Therapy Visit Information Visit Information Visit Type Treatment Note Visit Start Time 10:38 Visit Stop Time 11:16 Total Visit Minutes 38 Visit Number 6 Evaluation Information Evaluation Date 08/17/21 Precautions Precautions Lesion at Caudia Equina at level of L1-L2 discs and compression of nerve roots and severe narrowing of central canal at L2-3, L3-L4. Compression fracture history L4 & L5, and multi-level lumbar DDD. 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 PT-OP-B Current Condition Start: 08/15/21 18:13 Freq: Status: Active Protocol: Document 08/17/21 10:37 LRN (Rec: 08/17/21 11:27 LRN [id number]) Current Condition History of Current Condition Onset Date Mar Current Complaints Discomfort sleeping. History of Current Condition Slipped and fell on tile floor at home landing on buttocks and suffered compression fracture of L5. Was expecting pain to resolve a couple months, but it didn't. Then requested either MRI or PT. Doctor didn't do either. Pain decreased over time but did not go away. Sought further medical intervention due to discomfort at nighttime (sleep disturbed). Was referred to Dr. Anguiano and states MRI showed increased compression of fx and that old fx was healed. No nerve involvement but found spinal stenosis; therefore nerve impingement. Because he has discomfort in the back it's thought the muscles hadn't relaxed; therefore referred to PT to help decrease the pain. Is to return to Dr Anguiano in 1 month. Prior Treatments and Tests X-ray showed L5 compression fracture, multi-level DDD, transitional element at S1. Given Pain meds. MRI showed Acute/subacute L4 compression fracture, multi- level DDD, facet arthropathy, Severe L2-L3 and L3-L4 central canal narrowing with compression of the nerve roots of the cauda equina. 6 millimeter nodule in the cauda equina at the level of the L1 -L2 disc. Lesion may represent nerve sheath tumor such as meningioma or schwannoma or could represent a metastatic lesion. Future Testing and Treatments Planned Dr. Anguiano follow up visit , after 3-4 treatments. Treatment Goals Patient/Caregiver Goals Pt goal is to be able to sleep better. Prior Functional Status Baseline Function- ADL's Independent Baseline Function- Mobility Independent Baseline Function- Other Gets up a couple times a night . Slept solidly for 3 hours at a time, slept for 7-8 hrs. Lifted sacks of garden soil. Current Functional Impairments (Reported) Functional Limitations- ADL's Wakes and turns side to side every hour, 7-8 hrs. Gets up to go to bathroom 3x/ night Avoids lifting things. Personal Factors Other Personal Factors That May Effect Lesion at Caudia Equina at Therapy/Recovery level of L1-L2 discs and compression of nerve roots and severe narrowing of central canal at L2-3, L3-L4. Compression fracture history L4 & L5, and multi-level lumbar DDD. PT-OP-C Subjective Start: 08/15/21 18:13 Freq: Status: Active Protocol: Document 09/11/21 10:38 LRN (Rec: 09/11/21 11:21 LRN [id number]) OP-PT Subjective Patient Comments Patient Comments No change in particular. Don't notice the pain in the front of the hips. LBP is same, 07/10. PT-OP-H Neuro Start: 08/15/21 18:13 Freq: Status: Active Protocol: Document 08/17/21 10:37 LRN (Rec: 08/17/21 11:27 LRN [id number]) Sensation Evaluation Gross Sensation Gross Sensation WNL Comments Summary Comments Decreased sensation with tingling in top part & front distal 1/2 of feet and toes. PT-OP-J Posture/Palpation/Skin Start: 08/15/21 18:13 Freq: Status: Active Protocol: Document 08/17/21 10:37 LRN (Rec: 08/17/21 11:27 LRN [id number]) Posture Evaluation Position Standing Head/C-Spine Posture Forward Head T-Spine Posture Increased Kyphosis L-Spine Posture Flattened Shoulder Posture (L) Elevated Pelvis Posture Posterior Tilted Weight Distribution Weight Shifted Left Hip Posture (R) Externally Rotated Comments Posture Comments Sits slumped with R leg extended. Standing: Hips flexed 90 deg' s. Palpation Assessment Location Low Back Palpation Location QL, Posterior Sacrum Palpation Findings Tenderness PT-OP-K Range of Motion Start: 08/15/21 18:13 Freq: Status: Active Protocol: Document 08/17/21 10:37 LRN (Rec: 08/17/21 11:27 LRN [id number]) Lumbar Spine Range of Motion Lumbar Spine Active Degrees Testing Position Standing Flexion 72 Extension 7 Rotation Left 5 Rotation Right 5 Lateral Flexion Left 10 Lateral Flexion Right 10 ROM Limitations Soft Tissue Tightness Comments Trunk Flex is 72 deg's with 65 deg's hip flexion. Trunk Ext is 7 deg's with 7 deg's hip ext. Hip Goniometric Range of Motion Hip Right Passive Testing Position Supine Straight Leg Raise 85 Internal Rotation 35 External Rotation 65 Left Passive Testing Position Supine Straight Leg Raise 75 Internal Rotation 50 External Rotation 40 PT-OP-L Special Tests Start: 08/15/21 18:13 Freq: Status: Active Protocol: Document 08/17/21 10:37 LRN (Rec: 08/17/21 11:27 LRN [id number]) Special Tests Lumbar Spine Special Tests Straight Leg Raise Test Results 85 R, 75 L Hip Special Tests Gustabo Test Results Bilateral: Positive Comments Tight hip flexors bilaterally. PT-OP-M Strength Start: 08/15/21 18:13 Freq: Status: Active Protocol: Document 08/17/21 10:37 LRN (Rec: 08/17/21 11:27 LRN [id number]) Trunk Strength Trunk Manual Muscle Testing Testing Position Sitting Comments Generally 5/5 Hip Strength Hip Manual Muscle Testing Right Abduction 3 Fair Adduction 3 Fair External Rotation 5 Normal Internal Rotation 5 Normal Comments Pain in LB with hip AD MMT Left Abduction 3 Fair Adduction 4 Good External Rotation 5 Normal Internal Rotation 5 Normal Comments Pain in LB with hip AD MMT PT-OP-Q Treatments Start: 08/15/21 18:13 Freq: Status: Active Protocol: Document 09/11/21 10:38 LRN (Rec: 09/11/21 11:21 LRN [id number]) Therapeutic Exercises Supine Exercises Trunk rot Supine Exercise Name Trunk rot strengthening with Arms moving side to side Side bilateral Reps/Minutes 10x 2, 5x Comments Stopped due to start of back pain. Chest breathing Supine Exercise Name TA tight w/Chest breathing Reps/Minutes 3' Comments Pt able to get chest excursion with breathing and auto TA contraction Bridge Supine Exercise Name Midi Bridge Reps/Minutes 10x Comments V cuing needed for proper breathing- no pain noted Piriformis stretch Supine Exercise Name Gentle Piriformis stretch Side bilateral Reps/Minutes 2x left, 1x right Sidelying Exercises TA tightening Sidelying Exercise Name TA tightening - through 4 breaths=10secs Side bilateral Reps/Minutes 9' Comments Phys cuing at abdomen (to hold ) and chest (to move). Clamshell Sidelying Exercise Name Clamshell Side bilateral Reps/Minutes 10x, 20x Comments Cuing needed for abdominal tightening. Standing Exercises Susie trunk rot Standing Exercise Name Punch outs with band attached out to side Side bilateral Reps/Minutes 15 R, 8 L Comments Tad with band to L < R. Hip flexor stretch Standing Exercise Name Hip flexor stretch, back leg not past front foot heel Reps/Minutes 5' Comments Much cuing and training to keep pt from having LBP or anterior hip pain. Manual Therapy Treatment Soft Tissue Mobilization Low back Body Location Alvina QL. lumbar paraspinals & R SIJ. Mobilization Type Strumming,Sustained Pressure Intensity/Depth Moderate Body Position Prone Comments Focus of STM at at R QL, lumbar paraspinals & R SIJ. PT-OP-R Modalities Start: 08/15/21 18:13 Freq: Status: Active Protocol: Document 08/31/21 09:57 LRN (Rec: 08/31/21 17:57 LRN [id number]) Hot Pack/Cold Pack Treatment Cold Pack Location R ASIS Patient Position Hooklying Treatment Duration (minutes) 15 Comments Cold Pack given during pt education treatment. PT-OP-T Assessment and Plan Start: 08/15/21 18:13 Freq: Status: Active Protocol: Document 09/11/21 10:38 LRN (Rec: 09/11/21 11:21 LRN [id number]) Physical Therapy Assessment Goals Two Impairment Sleep disturbed, toss and turns every hour. Impairment LBP rated 1/10 at night and on standing after sitting awhile . Short Term Goal (STG) Pt will be educated in different nighttime sleep positions and proper posture to minimize pain at night, as well as proper daily posture in sitting & standing. STG Duration 08/25/21: MET GOAL Sheriff'S Detective Goal (LTG) Decrease low back pain in sidelie with pt able to sleep for no less than 2 hours at a time for 7-8 hrs total unless waking for reasons other than LBP. One Impairment Pt lacks appropriate self care HEP Short Term Goal (STG) Pt will be educated in proper transfer & body mechanics to minimize onset of LBP. (08/25/21: Transfer training sit<>supine, sit<>stand. Proper body mechanics for bending, squatting, lifting ( front and at sides-moving feet ), and reaching. STG Duration MET GOAL Sheriff'S Detective Goal (LTG) Pt will be independent in a self care HEP to improve lumbar ext & hip ext mobility, general lumbar/thoracic/hip mobility, and core/hip strengthening. (08/25/21: Stretches: Fig 4, Piriformis stretch (knee to opposite shoulder), lateral hip stretch. Strengthening: Hip AB (Clamshell). (08/29/21: Added I/S for TA tightening with HO issued for TA for awareness). (09/11/21: HEP: Standing Hip ext stretch) LTG Duration 09/11/21: Progressed Assessment Summary Assessment Pt transfers sit to stand with good mechanics and is standing straighter with static standing. Pt able to lift higher with bridge without pain. Pt TA not palpable in supine, but feels a TA in sidelie. Pt not able to stab with breathing. Pt TA contraction is stronger in R sidelie. Pt has fair to poor understanding of hip ext stretch ex, but appeared to have a better understanding after review, further review may be needed. Pt had pain during ex reportedly 3-10/08, but no LBP at end of therapy+ response to STM at R QL. lumbar paraspinals & R SIJ with resolution of pain. Physical Therapy Plan Next Visit Focus/Plan Next Note Type Treatment Note Next Visit Plan (note: caution L4 compr fx hx & caudia equina L1-L2 disc lesion) Assess if pt has been consistent with hip flexor stretch. Assess progress to goals. HEP: Strengthening: core, hip (alvina AB, R AD) HEP: Gentle Lumbar ext ROM ex, Placement on gentle progression of stretch of Ilipsoas and Quadratus lumborum. STM: LB Modalities as needed for pain (ice, heat).
--- NOTE | 2021-09-14 13:24 | PT.OTN ---
Current Diagnoses Postural kyphosis, site unspecified (09/14/21) Muscle weakness (generalized) (09/14/21) Wedge compression fracture of fourth lumbar vertebra, subsequent encounter for fracture with routine healing (09/14/21) Strain of muscle, fascia and tendon of lower back, initial encounter (09/14/21) Physical Therapy Treatment Note PT-OP-A Visit Information Start: 08/15/21 18:13 Freq: Status: Active Protocol: Document 09/14/21 10:34 LRN (Rec: 09/14/21 11:18 LRN [id number]) Out-Patient Physical Therapy Visit Information Visit Information Visit Type Treatment Note Visit Start Time 10:34 Visit Stop Time 11:16 Total Visit Minutes 42 Visit Number 7 Evaluation Information Evaluation Date 08/17/21 Precautions Precautions Lesion at Caudia Equina at level of L1-L2 discs and compression of nerve roots and severe narrowing of central canal at L2-3, L3-L4. Compression fracture history L4 & L5, and multi-level lumbar DDD. 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 PT-OP-B Current Condition Start: 08/15/21 18:13 Freq: Status: Active Protocol: Document 08/17/21 10:37 LRN (Rec: 08/17/21 11:27 LRN [id number]) Current Condition History of Current Condition Onset Date Mar Current Complaints Discomfort sleeping. History of Current Condition Slipped and fell on tile floor at home landing on buttocks and suffered compression fracture of L5. Was expecting pain to resolve a couple months, but it didn't. Then requested either MRI or PT. Doctor didn't do either. Pain decreased over time but did not go away. Sought further medical intervention due to discomfort at nighttime (sleep disturbed). Was referred to Dr. Anguiano and states MRI showed increased compression of fx and that old fx was healed. No nerve involvement but found spinal stenosis; therefore nerve impingement. Because he has discomfort in the back it's thought the muscles hadn't relaxed; therefore referred to PT to help decrease the pain. Is to return to Dr Anguiano in 1 month. Prior Treatments and Tests X-ray showed L5 compression fracture, multi-level DDD, transitional element at S1. Given Pain meds. MRI showed Acute/subacute L4 compression fracture, multi- level DDD, facet arthropathy, Severe L2-L3 and L3-L4 central canal narrowing with compression of the nerve roots of the cauda equina. 6 millimeter nodule in the cauda equina at the level of the L1 -L2 disc. Lesion may represent nerve sheath tumor such as meningioma or schwannoma or could represent a metastatic lesion. Future Testing and Treatments Planned Dr. Anguiano follow up visit , after 3-4 treatments. Treatment Goals Patient/Caregiver Goals Pt goal is to be able to sleep better. Prior Functional Status Baseline Function- ADL's Independent Baseline Function- Mobility Independent Baseline Function- Other Gets up a couple times a night . Slept solidly for 3 hours at a time, slept for 7-8 hrs. Lifted sacks of garden soil. Current Functional Impairments (Reported) Functional Limitations- ADL's Wakes and turns side to side every hour, 7-8 hrs. Gets up to go to bathroom 3x/ night Avoids lifting things. Personal Factors Other Personal Factors That May Effect Lesion at Caudia Equina at Therapy/Recovery level of L1-L2 discs and compression of nerve roots and severe narrowing of central canal at L2-3, L3-L4. Compression fracture history L4 & L5, and multi-level lumbar DDD. PT-OP-C Subjective Start: 08/15/21 18:13 Freq: Status: Active Protocol: Document 09/14/21 10:34 LRN (Rec: 09/14/21 11:18 LRN [id number]) OP-PT Subjective Patient Comments Patient Comments States he is having more upper back discomfort. Sleeping sometimes better 1-1.5 hrs. PT-OP-H Neuro Start: 08/15/21 18:13 Freq: Status: Active Protocol: Document 08/17/21 10:37 LRN (Rec: 08/17/21 11:27 LRN [id number]) Sensation Evaluation Gross Sensation Gross Sensation WNL Comments Summary Comments Decreased sensation with tingling in top part & front distal 1/2 of feet and toes. PT-OP-J Posture/Palpation/Skin Start: 08/15/21 18:13 Freq: Status: Active Protocol: Document 08/17/21 10:37 LRN (Rec: 08/17/21 11:27 LRN [id number]) Posture Evaluation Position Standing Head/C-Spine Posture Forward Head T-Spine Posture Increased Kyphosis L-Spine Posture Flattened Shoulder Posture (L) Elevated Pelvis Posture Posterior Tilted Weight Distribution Weight Shifted Left Hip Posture (R) Externally Rotated Comments Posture Comments Sits slumped with R leg extended. Standing: Hips flexed 90 deg' s. Palpation Assessment Location Low Back Palpation Location QL, Posterior Sacrum Palpation Findings Tenderness PT-OP-K Range of Motion Start: 08/15/21 18:13 Freq: Status: Active Protocol: Document 08/17/21 10:37 LRN (Rec: 08/17/21 11:27 LRN [id number]) Lumbar Spine Range of Motion Lumbar Spine Active Degrees Testing Position Standing Flexion 72 Extension 7 Rotation Left 5 Rotation Right 5 Lateral Flexion Left 10 Lateral Flexion Right 10 ROM Limitations Soft Tissue Tightness Comments Trunk Flex is 72 deg's with 65 deg's hip flexion. Trunk Ext is 7 deg's with 7 deg's hip ext. Hip Goniometric Range of Motion Hip Right Passive Testing Position Supine Straight Leg Raise 85 Internal Rotation 35 External Rotation 65 Left Passive Testing Position Supine Straight Leg Raise 75 Internal Rotation 50 External Rotation 40 PT-OP-L Special Tests Start: 08/15/21 18:13 Freq: Status: Active Protocol: Document 08/17/21 10:37 LRN (Rec: 08/17/21 11:27 LRN [id number]) Special Tests Lumbar Spine Special Tests Straight Leg Raise Test Results 85 R, 75 L Hip Special Tests Gustabo Test Results Bilateral: Positive Comments Tight hip flexors bilaterally. PT-OP-M Strength Start: 08/15/21 18:13 Freq: Status: Active Protocol: Document 08/17/21 10:37 LRN (Rec: 08/17/21 11:27 LRN [id number]) Trunk Strength Trunk Manual Muscle Testing Testing Position Sitting Comments Generally 5/5 Hip Strength Hip Manual Muscle Testing Right Abduction 3 Fair Adduction 3 Fair External Rotation 5 Normal Internal Rotation 5 Normal Comments Pain in LB with hip AD MMT Left Abduction 3 Fair Adduction 4 Good External Rotation 5 Normal Internal Rotation 5 Normal Comments Pain in LB with hip AD MMT PT-OP-Q Treatments Start: 08/15/21 18:13 Freq: Status: Active Protocol: Document 09/14/21 10:34 LRN (Rec: 09/14/21 11:18 LRN [id number]) Therapeutic Exercises Supine Exercises TA/BKFP Supine Exercise Name TA/BKFO Reps/Minutes 15 x 2 Comments phys & v cuing to keep TA tigjht with breathing & ex. SKTC stretch Supine Exercise Name SKTC for QL stretch Side bilateral Reps/Minutes 10 x 10 Comments Much cuing needed to not overstretch and cause lumbar pain and overstretch. Trunk rot Supine Exercise Name Trunk rot strengthening with Arms moving side to side Side bilateral Reps/Minutes 15x 2, 5x Comments Stopped due to start of back pain. Sidelying Exercises TA tightening Sidelying Exercise Name TA tightening - through 4 breaths=10secs Side bilateral Reps/Minutes 9' Comments Phys cuing at abdomen (to hold ) and chest (to move). Clamshell Sidelying Exercise Name Clamshell Side bilateral Reps/Minutes 15x 2 Comments Cuing needed for abdominal tightening. Manual Therapy Treatment Soft Tissue Mobilization Low back Body Location Ll QL. lumbar paraspinals & R SIJ. Mobilization Type Strumming,Sustained Pressure Intensity/Depth Moderate Body Position Sidelying Comments Focus of STM at at L QL, lumbar paraspinals . PT-OP-R Modalities Start: 08/15/21 18:13 Freq: Status: Active Protocol: Document 08/31/21 09:57 LRN (Rec: 08/31/21 17:57 LRN [id number]) Hot Pack/Cold Pack Treatment Cold Pack Location R ASIS Patient Position Hooklying Treatment Duration (minutes) 15 Comments Cold Pack given during pt education treatment. PT-OP-T Assessment and Plan Start: 08/15/21 18:13 Freq: Status: Active Protocol: Document 09/14/21 10:34 LRN (Rec: 09/14/21 11:18 LRN [id number]) Physical Therapy Assessment Goals Two Impairment Sleep disturbed, toss and turns every hour. Impairment LBP rated 1/10 at night and on standing after sitting awhile . Short Term Goal (STG) Pt will be educated in different nighttime sleep positions and proper posture to minimize pain at night, as well as proper daily posture in sitting & standing. STG Duration 08/25/21: MET GOAL Deposition Reporter Goal (LTG) Decrease low back pain in sidelie with pt able to sleep for no less than 2 hours at a time for 7-8 hrs total unless waking for reasons other than LBP. (09/14/21: sleeping 1-1.5 hrs at night). LTG Duration 10/16/21 (09/14/21: sleeping 1-1.5 hrs at night). One Impairment Pt lacks appropriate self care HEP Short Term Goal (STG) Pt will be educated in proper transfer & body mechanics to minimize onset of LBP. (08/25/21: Transfer training sit<>supine, sit<>stand. Proper body mechanics for bending, squatting, lifting ( front and at sides-moving feet ), and reaching. STG Duration MET GOAL Residential Goal (LTG) Pt will be independent in a self care HEP to improve lumbar ext & hip ext mobility, general lumbar/thoracic/hip mobility, and core/hip strengthening. (08/25/21: Stretches: Fig 4, Piriformis stretch (knee to opposite shoulder), lateral hip stretch. Strengthening: Hip AB (Clamshell). (08/29/21: Added I/S for TA tightening with HO issued for TA for awareness). (09/11/21: HEP: Standing Hip ext stretch) LTG Duration 10/16/21 (09/11/21: Progressed) Assessment Summary Assessment Pt slowly improving. He is sleeping sometimes better and wakes not because of pain, but just because uncomfortable on his back. He demonstrates less tightening of the L TA in R sidelie just under lower ribs during TA strengthening. Pt needs much cuing for proper standing posture, as he tends to stand flexed at the hips. Pt has hip ROM and strengthening ex's, but is not able to do hip ext due to onset of anterior hip pain. He is limited in strengthening due to onset of back pain. Pt is improving in ability to sleep and may need to increase time between therapy for self work on ex's. Physical Therapy Plan Frequency and Duration Frequency of Treatment 2x/Week Plan of Care Start Date 08/17/21 Plan of Care End Date 10/16/21 Next Visit Focus/Plan Next Note Type Treatment Note Next Visit Plan (note: caution L4 compr fx hx & caudia equina L1-L2 disc lesion) Assess if pt has been consistent with hip flexor stretch. Assess response to QL stretch (SKTC) and issue as HEP if + response. HEP: Gentle Lumbar ext ROM ex, gentle stretch of Quadratus lumborum. Decrease therapy to 1x/week with weaning to a self care HEP for DC. HEP: Strengthening: hip (alvina AB, R AD), progress core if tolerated (primarily jayro rot/ SB) STM: LB Modalities as needed for pain (ice, heat).
--- NOTE | 2021-09-18 12:25 | PT.OTN ---
Current Diagnoses Postural kyphosis, site unspecified (09/18/21) Muscle weakness (generalized) (09/18/21) Wedge compression fracture of fourth lumbar vertebra, subsequent encounter for fracture with routine healing (09/18/21) Strain of muscle, fascia and tendon of lower back, initial encounter (09/18/21) Physical Therapy Treatment Note PT-OP-A Visit Information Start: 08/15/21 18:13 Freq: Status: Active Protocol: Document 09/18/21 11:27 LRN (Rec: 09/18/21 12:11 LRN [id number]) Out-Patient Physical Therapy Visit Information Visit Information Visit Type Treatment Note Visit Start Time 11:20 Visit Stop Time 12:06 Total Visit Minutes 46 Visit Number 8 Evaluation Information Evaluation Date 08/17/21 Precautions Precautions Lesion at Caudia Equina at level of L1-L2 discs and compression of nerve roots and severe narrowing of central canal at L2-3, L3-L4. Compression fracture history L4 & L5, and multi-level lumbar DDD. 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 PT-OP-B Current Condition Start: 08/15/21 18:13 Freq: Status: Active Protocol: Document 08/17/21 10:37 LRN (Rec: 08/17/21 11:27 LRN [id number]) Current Condition History of Current Condition Onset Date Mar Current Complaints Discomfort sleeping. History of Current Condition Slipped and fell on tile floor at home landing on buttocks and suffered compression fracture of L5. Was expecting pain to resolve a couple months, but it didn't. Then requested either MRI or PT. Doctor didn't do either. Pain decreased over time but did not go away. Sought further medical intervention due to discomfort at nighttime (sleep disturbed). Was referred to Dr. Anguiano and states MRI showed increased compression of fx and that old fx was healed. No nerve involvement but found spinal stenosis; therefore nerve impingement. Because he has discomfort in the back it's thought the muscles hadn't relaxed; therefore referred to PT to help decrease the pain. Is to return to Dr Anguiano in 1 month. Prior Treatments and Tests X-ray showed L5 compression fracture, multi-level DDD, transitional element at S1. Given Pain meds. MRI showed Acute/subacute L4 compression fracture, multi- level DDD, facet arthropathy, Severe L2-L3 and L3-L4 central canal narrowing with compression of the nerve roots of the cauda equina. 6 millimeter nodule in the cauda equina at the level of the L1 -L2 disc. Lesion may represent nerve sheath tumor such as meningioma or schwannoma or could represent a metastatic lesion. Future Testing and Treatments Planned Dr. Anguiano follow up visit , after 3-4 treatments. Treatment Goals Patient/Caregiver Goals Pt goal is to be able to sleep better. Prior Functional Status Baseline Function- ADL's Independent Baseline Function- Mobility Independent Baseline Function- Other Gets up a couple times a night . Slept solidly for 3 hours at a time, slept for 7-8 hrs. Lifted sacks of garden soil. Current Functional Impairments (Reported) Functional Limitations- ADL's Wakes and turns side to side every hour, 7-8 hrs. Gets up to go to bathroom 3x/ night Avoids lifting things. Personal Factors Other Personal Factors That May Effect Lesion at Caudia Equina at Therapy/Recovery level of L1-L2 discs and compression of nerve roots and severe narrowing of central canal at L2-3, L3-L4. Compression fracture history L4 & L5, and multi-level lumbar DDD. PT-OP-C Subjective Start: 08/15/21 18:13 Freq: Status: Active Protocol: Document 09/18/21 11:27 LRN (Rec: 09/18/21 12:11 LRN [id number]) OP-PT Subjective Patient Comments Patient Comments No complaints of pain. Pain at night in L side (~T7-L5). States he is still waking due to discomfort every 1-2 hrs. States the sleep time used to be regularly every hour, it is creeping up to 2 hrs but not consistent. PT-OP-H Neuro Start: 08/15/21 18:13 Freq: Status: Active Protocol: Document 08/17/21 10:37 LRN (Rec: 08/17/21 11:27 LRN [id number]) Sensation Evaluation Gross Sensation Gross Sensation WNL Comments Summary Comments Decreased sensation with tingling in top part & front distal 1/2 of feet and toes. PT-OP-J Posture/Palpation/Skin Start: 08/15/21 18:13 Freq: Status: Active Protocol: Document 08/17/21 10:37 LRN (Rec: 08/17/21 11:27 LRN [id number]) Posture Evaluation Position Standing Head/C-Spine Posture Forward Head T-Spine Posture Increased Kyphosis L-Spine Posture Flattened Shoulder Posture (L) Elevated Pelvis Posture Posterior Tilted Weight Distribution Weight Shifted Left Hip Posture (R) Externally Rotated Comments Posture Comments Sits slumped with R leg extended. Standing: Hips flexed 90 deg' s. Palpation Assessment Location Low Back Palpation Location QL, Posterior Sacrum Palpation Findings Tenderness PT-OP-K Range of Motion Start: 08/15/21 18:13 Freq: Status: Active Protocol: Document 08/17/21 10:37 LRN (Rec: 08/17/21 11:27 LRN [id number]) Lumbar Spine Range of Motion Lumbar Spine Active Degrees Testing Position Standing Flexion 72 Extension 7 Rotation Left 5 Rotation Right 5 Lateral Flexion Left 10 Lateral Flexion Right 10 ROM Limitations Soft Tissue Tightness Comments Trunk Flex is 72 deg's with 65 deg's hip flexion. Trunk Ext is 7 deg's with 7 deg's hip ext. Hip Goniometric Range of Motion Hip Right Passive Testing Position Supine Straight Leg Raise 85 Internal Rotation 35 External Rotation 65 Left Passive Testing Position Supine Straight Leg Raise 75 Internal Rotation 50 External Rotation 40 PT-OP-L Special Tests Start: 08/15/21 18:13 Freq: Status: Active Protocol: Document 08/17/21 10:37 LRN (Rec: 08/17/21 11:27 LRN [id number]) Special Tests Lumbar Spine Special Tests Straight Leg Raise Test Results 85 R, 75 L Hip Special Tests Gustabo Test Results Bilateral: Positive Comments Tight hip flexors bilaterally. PT-OP-M Strength Start: 08/15/21 18:13 Freq: Status: Active Protocol: Document 08/17/21 10:37 LRN (Rec: 08/17/21 11:27 LRN [id number]) Trunk Strength Trunk Manual Muscle Testing Testing Position Sitting Comments Generally 5/5 Hip Strength Hip Manual Muscle Testing Right Abduction 3 Fair Adduction 3 Fair External Rotation 5 Normal Internal Rotation 5 Normal Comments Pain in LB with hip AD MMT Left Abduction 3 Fair Adduction 4 Good External Rotation 5 Normal Internal Rotation 5 Normal Comments Pain in LB with hip AD MMT PT-OP-Q Treatments Start: 08/15/21 18:13 Freq: Status: Active Protocol: Document 09/18/21 11:27 LRN (Rec: 09/18/21 12:11 LRN [id number]) Therapeutic Exercises Supine Exercises SKTC stretch Supine Exercise Name SKTC for QL stretch Side bilateral Reps/Minutes 10 x 10 Comments Much cuing needed to not overstretch and cause lumbar pain and overstretch. Bridge Supine Exercise Name Midi Bridge Reps/Minutes 15x, rest (clamshells) 15x Comments V cuing needed for proper breathing- no pain noted Piriformis stretch Supine Exercise Name Gentle Piriformis stretch Side bilateral Reps/Minutes 1x each Sidelying Exercises TA tightening Sidelying Exercise Name TA tightening - through 4 breaths=10secs Side bilateral Reps/Minutes 3' Comments Phys cuing at abdomen (to hold ) and chest (to move). Clamshell Sidelying Exercise Name Clamshell Side bilateral Reps/Minutes 15x 2 Comments Cuing needed to keep hips from rolling back Sitting Exercises Hip ER stretch Sitting Exercise Name Hip ER stretch Side bilateral Reps/Minutes 60 x 1 each Comments V cuing needed to avoid overstretching. Standing Exercises Alvina Shldr ext Standing Exercise Name Shoulder Ext (trunk ext strengthening) Side bilateral Reps/Minutes 10x 2, rest, 10x Susie trunk rot Standing Exercise Name Punch outs with band attached out to side Side bilateral Reps/Minutes Alternating sides: 10x 2 sets Comments Tad with band to L < R. Hip flexor stretch Standing Exercise Name Hip flexor stretch, back leg not past front foot heel Reps/Minutes 4' Comments Cuing and training to keep pt from having LBP or anterior hip pain. PT-OP-R Modalities Start: 08/15/21 18:13 Freq: Status: Active Protocol: Document 08/31/21 09:57 LRN (Rec: 08/31/21 17:57 LRN [id number]) Hot Pack/Cold Pack Treatment Cold Pack Location R ASIS Patient Position Hooklying Treatment Duration (minutes) 15 Comments Cold Pack given during pt education treatment. PT-OP-T Assessment and Plan Start: 08/15/21 18:13 Freq: Status: Active Protocol: Document 09/18/21 11:27 LRN (Rec: 09/18/21 12:11 LRN [id number]) Physical Therapy Assessment Goals Two Impairment Sleep disturbed, toss and turns every hour. Impairment LBP rated 1/10 at night and on standing after sitting awhile . Short Term Goal (STG) Pt will be educated in different nighttime sleep positions and proper posture to minimize pain at night, as well as proper daily posture in sitting & standing. STG Duration 08/25/21: MET GOAL Waxer Goal (LTG) Decrease low back pain in sidelie with pt able to sleep for no less than 2 hours at a time for 7-8 hrs total unless waking for reasons other than LBP. (09/14/21: sleeping 1-1.5 hrs at night). LTG Duration 10/16/21 (09/14/21: sleeping 1-1.5 hrs at night). One Impairment Pt lacks appropriate self care HEP Short Term Goal (STG) Pt will be educated in proper transfer & body mechanics to minimize onset of LBP. (08/25/21: Transfer training sit<>supine, sit<>stand. Proper body mechanics for bending, squatting, lifting ( front and at sides-moving feet ), and reaching. STG Duration MET GOAL Waxer Goal (LTG) Pt will be independent in a self care HEP to improve lumbar ext & hip ext mobility, general lumbar/thoracic/hip mobility, and core/hip strengthening. (08/25/21: Stretches: Fig 4, Piriformis stretch (knee to opposite shoulder), lateral hip stretch. Strengthening: Hip AB (Clamshell). (08/29/21: Added I/S for TA tightening with HO issued for TA for awareness). (09/11/21: HEP: Standing Hip ext stretch) LTG Duration 10/16/21 (09/11/21: Progressed) Assessment Summary Assessment Nighttime discomfort remains the same, except he may be getting slight more sleep before waking. Pt is not sure if he is waking due to the discomfort, stating it may be due to his bladder. Pt appears to be doing minimal ex 's (1x/day), doing hip stretches once in 2 days; therefore progress is slow. He has good tolerance to SKTC stretch with no complaints of discomfort. Pt reports doing hip flexor stretch 1x/day. Pt able to complete 3 sets of thoracic/back strengtheing ex' s when a rest is given at first onset of discomfort ( example-with shoulder ext ex). Pt transfer in a partial sit up/log roll method when getting off the plinth; therefore doubtful pt is doing log roll method at home. Pt may need STM to improve trunk mobility for comfort at nighttime. Physical Therapy Plan Frequency and Duration Frequency of Treatment 2x/Week Plan of Care Start Date 08/17/21 Plan of Care End Date 10/16/21 Next Visit Focus/Plan Next Note Type Treatment Note Next Visit Plan (note: caution L4 compr fx hx & caudia equina L1-L2 disc Issue HEP: Gentle min Lumbar ext ROM ex (shoulder ext), gentle stretch of Quadratus lumborum (SKTC). Decrease therapy to 1x/week with weaning to a self care HEP for DC. Add HEP: Strengthening: hip ( alvina AB, R AD), Exer: Progress core if tolerated (try susie SB w/TB or WBing standing on arms). STM: LB Modalities as needed for pain (ice, heat).
--- NOTE | 2021-09-25 16:51 | PT.OTN ---
Current Diagnoses Postural kyphosis, site unspecified (09/25/21) Muscle weakness (generalized) (09/25/21) Wedge compression fracture of fourth lumbar vertebra, subsequent encounter for fracture with routine healing (09/25/21) Strain of muscle, fascia and tendon of lower back, initial encounter (09/25/21) Physical Therapy Treatment Note PT-OP-A Visit Information Start: 08/15/21 18:13 Freq: Status: Active Protocol: Document 09/25/21 10:35 LRN (Rec: 09/25/21 12:43 LRN [id number]) Out-Patient Physical Therapy Visit Information Visit Information Visit Type Treatment Note Visit Start Time 10:35 Visit Stop Time 11:18 Total Visit Minutes 43 Visit Number 9 Evaluation Information Evaluation Date 08/17/21 Precautions Precautions Lesion at Caudia Equina at level of L1-L2 discs and compression of nerve roots and severe narrowing of central canal at L2-3, L3-L4. Compression fracture history L4 & L5, and multi-level lumbar DDD. 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 PT-OP-B Current Condition Start: 08/15/21 18:13 Freq: Status: Active Protocol: Document 08/17/21 10:37 LRN (Rec: 08/17/21 11:27 LRN [id number]) Current Condition History of Current Condition Onset Date Mar Current Complaints Discomfort sleeping. History of Current Condition Slipped and fell on tile floor at home landing on buttocks and suffered compression fracture of L5. Was expecting pain to resolve a couple months, but it didn't. Then requested either MRI or PT. Doctor didn't do either. Pain decreased over time but did not go away. Sought further medical intervention due to discomfort at nighttime (sleep disturbed). Was referred to Dr. Anguiano and states MRI showed increased compression of fx and that old fx was healed. No nerve involvement but found spinal stenosis; therefore nerve impingement. Because he has discomfort in the back it's thought the muscles hadn't relaxed; therefore referred to PT to help decrease the pain. Is to return to Dr Anguiano in 1 month. Prior Treatments and Tests X-ray showed L5 compression fracture, multi-level DDD, transitional element at S1. Given Pain meds. MRI showed Acute/subacute L4 compression fracture, multi- level DDD, facet arthropathy, Severe L2-L3 and L3-L4 central canal narrowing with compression of the nerve roots of the cauda equina. 6 millimeter nodule in the cauda equina at the level of the L1 -L2 disc. Lesion may represent nerve sheath tumor such as meningioma or schwannoma or could represent a metastatic lesion. Future Testing and Treatments Planned Dr. Anguiano follow up visit , after 3-4 treatments. Treatment Goals Patient/Caregiver Goals Pt goal is to be able to sleep better. Prior Functional Status Baseline Function- ADL's Independent Baseline Function- Mobility Independent Baseline Function- Other Gets up a couple times a night . Slept solidly for 3 hours at a time, slept for 7-8 hrs. Lifted sacks of garden soil. Current Functional Impairments (Reported) Functional Limitations- ADL's Wakes and turns side to side every hour, 7-8 hrs. Gets up to go to bathroom 3x/ night Avoids lifting things. Personal Factors Other Personal Factors That May Effect Lesion at Caudia Equina at Therapy/Recovery level of L1-L2 discs and compression of nerve roots and severe narrowing of central canal at L2-3, L3-L4. Compression fracture history L4 & L5, and multi-level lumbar DDD. PT-OP-C Subjective Start: 08/15/21 18:13 Freq: Status: Active Protocol: Document 09/25/21 10:35 LRN (Rec: 09/25/21 12:43 LRN [id number]) OP-PT Subjective Patient Comments Patient Comments States no change. Today he has a little anterior R hip pain. States he can sometimes sleep a little longer. PT-OP-H Neuro Start: 08/15/21 18:13 Freq: Status: Active Protocol: Document 08/17/21 10:37 LRN (Rec: 08/17/21 11:27 LRN [id number]) Sensation Evaluation Gross Sensation Gross Sensation WNL Comments Summary Comments Decreased sensation with tingling in top part & front distal 1/2 of feet and toes. PT-OP-J Posture/Palpation/Skin Start: 08/15/21 18:13 Freq: Status: Active Protocol: Document 08/17/21 10:37 LRN (Rec: 08/17/21 11:27 LRN [id number]) Posture Evaluation Position Standing Head/C-Spine Posture Forward Head T-Spine Posture Increased Kyphosis L-Spine Posture Flattened Shoulder Posture (L) Elevated Pelvis Posture Posterior Tilted Weight Distribution Weight Shifted Left Hip Posture (R) Externally Rotated Comments Posture Comments Sits slumped with R leg extended. Standing: Hips flexed 90 deg' s. Palpation Assessment Location Low Back Palpation Location QL, Posterior Sacrum Palpation Findings Tenderness PT-OP-K Range of Motion Start: 08/15/21 18:13 Freq: Status: Active Protocol: Document 08/17/21 10:37 LRN (Rec: 08/17/21 11:27 LRN [id number]) Lumbar Spine Range of Motion Lumbar Spine Active Degrees Testing Position Standing Flexion 72 Extension 7 Rotation Left 5 Rotation Right 5 Lateral Flexion Left 10 Lateral Flexion Right 10 ROM Limitations Soft Tissue Tightness Comments Trunk Flex is 72 deg's with 65 deg's hip flexion. Trunk Ext is 7 deg's with 7 deg's hip ext. Hip Goniometric Range of Motion Hip Right Passive Testing Position Supine Straight Leg Raise 85 Internal Rotation 35 External Rotation 65 Left Passive Testing Position Supine Straight Leg Raise 75 Internal Rotation 50 External Rotation 40 PT-OP-L Special Tests Start: 08/15/21 18:13 Freq: Status: Active Protocol: Document 08/17/21 10:37 LRN (Rec: 08/17/21 11:27 LRN [id number]) Special Tests Lumbar Spine Special Tests Straight Leg Raise Test Results 85 R, 75 L Hip Special Tests Gustabo Test Results Bilateral: Positive Comments Tight hip flexors bilaterally. PT-OP-M Strength Start: 08/15/21 18:13 Freq: Status: Active Protocol: Document 08/17/21 10:37 LRN (Rec: 08/17/21 11:27 LRN [id number]) Trunk Strength Trunk Manual Muscle Testing Testing Position Sitting Comments Generally 5/5 Hip Strength Hip Manual Muscle Testing Right Abduction 3 Fair Adduction 3 Fair External Rotation 5 Normal Internal Rotation 5 Normal Comments Pain in LB with hip AD MMT Left Abduction 3 Fair Adduction 4 Good External Rotation 5 Normal Internal Rotation 5 Normal Comments Pain in LB with hip AD MMT PT-OP-Q Treatments Start: 08/15/21 18:13 Freq: Status: Active Protocol: Document 09/25/21 10:35 LRN (Rec: 09/25/21 12:43 LRN [id number]) Therapeutic Exercises Sidelying Exercises Hip AB Side bilateral Reps/Minutes 8x Hip AD Sidelying Exercise Name Hip AD Side right Reps/Minutes 8x Comments Assist needed to lift bottom leg and cuing to stab core Clamshell Sidelying Exercise Name Clamshell Side bilateral Equipment Used 0#, 1# Reps/Minutes 15x, 8x 2, respectively Comments Cuing needed to keep hips from rolling back Sitting Exercises Trunk Ext Sitting Exercise Name Sitting arching back with crossed arms/elbows to ceiling Reps/Minutes 10 H x 10 Standing Exercises Susie trunk strengthening Standing Exercise Name Susie ext, alvina SB, flex with Sport cord. Reps/Minutes 20' Alvina Shldr ext Standing Exercise Name Shoulder Ext (trunk ext strengthening) Side bilateral Reps/Minutes 15x 2, short rest btn sets Susie trunk rot Standing Exercise Name Punch outs with band attached out to side Side bilateral Reps/Minutes 15x 2 sets resistance on R, 8x 3 with resistance on L. Comments Tad with band resistance to L < R. Hip flexor stretch Standing Exercise Name Hip flexor stretch, back leg not past front foot heel Reps/Minutes 4' (10 holds progressing to 60 holds) Comments Cuing and training to keep pt from having LBP or anterior hip pain. Manual Therapy Treatment Soft Tissue Mobilization R hip flexor Body Location R hip flexor Mobilization Type Other Body Position Sidelying Comments CRISTIANA stretch to R iliopsoas & quads Self-Care/Home Management Treatment Education Patient Education Home Exercise Program Activities Self-Care/Home Management Activities I/S pt in HEP: Alvina Hip AB, and R hip AD PT-OP-R Modalities Start: 08/15/21 18:13 Freq: Status: Active Protocol: Document 08/31/21 09:57 LRN (Rec: 08/31/21 17:57 LRN [id number]) Hot Pack/Cold Pack Treatment Cold Pack Location R ASIS Patient Position Hooklying Treatment Duration (minutes) 15 Comments Cold Pack given during pt education treatment. PT-OP-T Assessment and Plan Start: 08/15/21 18:13 Freq: Status: Active Protocol: Document 09/25/21 10:35 LRN (Rec: 09/25/21 12:43 LRN [id number]) Physical Therapy Assessment Goals Two Impairment Sleep disturbed, toss and turns every hour. Impairment LBP rated 1/10 at night and on standing after sitting awhile . Short Term Goal (STG) Pt will be educated in different nighttime sleep positions and proper posture to minimize pain at night, as well as proper daily posture in sitting & standing. STG Duration 08/25/21: MET GOAL Usp Goal (LTG) Decrease low back pain in sidelie with pt able to sleep for no less than 2 hours at a time for 7-8 hrs total unless waking for reasons other than LBP. (09/14/21: sleeping 1-1.5 hrs at night). LTG Duration 10/16/21 (09/14/21: sleeping 1-1.5 hrs at night). One Impairment Pt lacks appropriate self care HEP Short Term Goal (STG) Pt will be educated in proper transfer & body mechanics to minimize onset of LBP. (08/25/21: Transfer training sit<>supine, sit<>stand. Proper body mechanics for bending, squatting, lifting ( front and at sides-moving feet ), and reaching. STG Duration MET GOAL Aircraft Worker Goal (LTG) Pt will be independent in a self care HEP to improve lumbar ext & hip ext mobility, general lumbar/thoracic/hip mobility, and core/hip strengthening. (08/25/21: Stretches: Fig 4, Piriformis stretch (knee to opposite shoulder), lateral hip stretch. Strengthening: Hip AB (Clamshell). (08/29/21: Added I/S for TA tightening with HO issued for TA for awareness). (09/11/21: HEP: Standing Hip ext stretch) LTG Duration 10/16/21 (09/11/21: Progressed) Assessment Summary Assessment Good tolerance to susie trunk strengthening. L hip flexor stretch is felt in R SIJ; R hip flexor stretch is felt in anterior hip. Improved core stability as noted with Clamshell exercise pt able to maintain stable core with leg movement. Physical Therapy Plan Frequency and Duration Frequency of Treatment 2x/Week Plan of Care Start Date 08/17/21 Plan of Care End Date 10/16/21 Next Visit Focus/Plan Next Note Type Treatment Note Next Visit Plan (note: caution L4 compr fx hx & caudia equina L1-L2 disc Issue HEP: Gentle min Lumbar ext ROM ex (shoulder ext), gentle stretch of Quadratus lumborum (SKTC). Decrease therapy to 1x/week with weaning to a self care HEP for DC. Add HEP: Strengthening: hip ( alvina AB, R AD), Exer: Progress core if tolerated (try susie SB w/TB or WBing standing on arms). STM: LB Modalities as needed for pain (ice, heat).
--- NOTE | 2021-09-29 16:47 | PT.OTN ---
Current Diagnoses Postural kyphosis, site unspecified (09/29/21) Muscle weakness (generalized) (09/29/21) Wedge compression fracture of fourth lumbar vertebra, subsequent encounter for fracture with routine healing (09/29/21) Strain of muscle, fascia and tendon of lower back, initial encounter (09/29/21) Physical Therapy Treatment Note PT-OP-A Visit Information Start: 08/15/21 18:13 Freq: Status: Active Protocol: Document 09/29/21 10:40 LRN (Rec: 09/29/21 12:08 LRN [id number]) Out-Patient Physical Therapy Visit Information Visit Information Visit Type Treatment Note Visit Start Time 10:40 Visit Stop Time 11:24 Total Visit Minutes 43 Visit Number 10 Evaluation Information Evaluation Date 08/17/21 Precautions Precautions Lesion at Caudia Equina at level of L1-L2 discs and compression of nerve roots and severe narrowing of central canal at L2-3, L3-L4. Compression fracture history L4 & L5, and multi-level lumbar DDD. 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 PT-OP-B Current Condition Start: 08/15/21 18:13 Freq: Status: Active Protocol: Document 08/17/21 10:37 LRN (Rec: 08/17/21 11:27 LRN [id number]) Current Condition History of Current Condition Onset Date Mar Current Complaints Discomfort sleeping. History of Current Condition Slipped and fell on tile floor at home landing on buttocks and suffered compression fracture of L5. Was expecting pain to resolve a couple months, but it didn't. Then requested either MRI or PT. Doctor didn't do either. Pain decreased over time but did not go away. Sought further medical intervention due to discomfort at nighttime (sleep disturbed). Was referred to Dr. Anguiano and states MRI showed increased compression of fx and that old fx was healed. No nerve involvement but found spinal stenosis; therefore nerve impingement. Because he has discomfort in the back it's thought the muscles hadn't relaxed; therefore referred to PT to help decrease the pain. Is to return to Dr Anguiano in 1 month. Prior Treatments and Tests X-ray showed L5 compression fracture, multi-level DDD, transitional element at S1. Given Pain meds. MRI showed Acute/subacute L4 compression fracture, multi- level DDD, facet arthropathy, Severe L2-L3 and L3-L4 central canal narrowing with compression of the nerve roots of the cauda equina. 6 millimeter nodule in the cauda equina at the level of the L1 -L2 disc. Lesion may represent nerve sheath tumor such as meningioma or schwannoma or could represent a metastatic lesion. Future Testing and Treatments Planned Dr. Anguiano follow up visit , after 3-4 treatments. Treatment Goals Patient/Caregiver Goals Pt goal is to be able to sleep better. Prior Functional Status Baseline Function- ADL's Independent Baseline Function- Mobility Independent Baseline Function- Other Gets up a couple times a night . Slept solidly for 3 hours at a time, slept for 7-8 hrs. Lifted sacks of garden soil. Current Functional Impairments (Reported) Functional Limitations- ADL's Wakes and turns side to side every hour, 7-8 hrs. Gets up to go to bathroom 3x/ night Avoids lifting things. Personal Factors Other Personal Factors That May Effect Lesion at Caudia Equina at Therapy/Recovery level of L1-L2 discs and compression of nerve roots and severe narrowing of central canal at L2-3, L3-L4. Compression fracture history L4 & L5, and multi-level lumbar DDD. PT-OP-C Subjective Start: 08/15/21 18:13 Freq: Status: Active Protocol: Document 09/29/21 10:40 LRN (Rec: 09/29/21 12:08 LRN [id number]) OP-PT Subjective Patient Comments Patient Comments States he is having pain in the R groin and in the L upper back. He feels improvement is not very fast and would rather not continue therapy. States not sure if geting up due to bladder or back. States back has been feeling better. Groin pain resolved after therapy. Patient Questionnaires Oswestry Low Back Index Oswestry Score 2 Oswestry Impairment 1 to 19% Impaired (Score 1-19) OP-PT Pain Assessment Location Low back Pain Location Details Across low back at level of iliac crest & sacrum Intensity 1 Scale Used Numeric (0 - 10) Description- Other L upper back below shoulder blade Frequency Intermittent Other Pain Aggravating Factors Not sure if having pain with sleeping. PT-OP-H Neuro Start: 08/15/21 18:13 Freq: Status: Active Protocol: Document 08/17/21 10:37 LRN (Rec: 08/17/21 11:27 LRN [id number]) Sensation Evaluation Gross Sensation Gross Sensation WNL Comments Summary Comments Decreased sensation with tingling in top part & front distal 1/2 of feet and toes. PT-OP-J Posture/Palpation/Skin Start: 08/15/21 18:13 Freq: Status: Active Protocol: Document 08/17/21 10:37 LRN (Rec: 08/17/21 11:27 LRN [id number]) Posture Evaluation Position Standing Head/C-Spine Posture Forward Head T-Spine Posture Increased Kyphosis L-Spine Posture Flattened Shoulder Posture (L) Elevated Pelvis Posture Posterior Tilted Weight Distribution Weight Shifted Left Hip Posture (R) Externally Rotated Comments Posture Comments Sits slumped with R leg extended. Standing: Hips flexed 90 deg' s. Palpation Assessment Location Low Back Palpation Location QL, Posterior Sacrum Palpation Findings Tenderness PT-OP-K Range of Motion Start: 08/15/21 18:13 Freq: Status: Active Protocol: Document 08/17/21 10:37 LRN (Rec: 08/17/21 11:27 LRN [id number]) Lumbar Spine Range of Motion Lumbar Spine Active Degrees Testing Position Standing Flexion 72 Extension 7 Rotation Left 5 Rotation Right 5 Lateral Flexion Left 10 Lateral Flexion Right 10 ROM Limitations Soft Tissue Tightness Comments Trunk Flex is 72 deg's with 65 deg's hip flexion. Trunk Ext is 7 deg's with 7 deg's hip ext. Hip Goniometric Range of Motion Hip Right Passive Testing Position Supine Straight Leg Raise 85 Internal Rotation 35 External Rotation 65 Left Passive Testing Position Supine Straight Leg Raise 75 Internal Rotation 50 External Rotation 40 PT-OP-L Special Tests Start: 08/15/21 18:13 Freq: Status: Active Protocol: Document 08/17/21 10:37 LRN (Rec: 08/17/21 11:27 LRN [id number]) Special Tests Lumbar Spine Special Tests Straight Leg Raise Test Results 85 R, 75 L Hip Special Tests Gustabo Test Results Bilateral: Positive Comments Tight hip flexors bilaterally. PT-OP-M Strength Start: 08/15/21 18:13 Freq: Status: Active Protocol: Document 08/17/21 10:37 LRN (Rec: 08/17/21 11:27 LRN [id number]) Trunk Strength Trunk Manual Muscle Testing Testing Position Sitting Comments Generally 5/5 Hip Strength Hip Manual Muscle Testing Right Abduction 3 Fair Adduction 3 Fair External Rotation 5 Normal Internal Rotation 5 Normal Comments Pain in LB with hip AD MMT Left Abduction 3 Fair Adduction 4 Good External Rotation 5 Normal Internal Rotation 5 Normal Comments Pain in LB with hip AD MMT PT-OP-Q Treatments Start: 08/15/21 18:13 Freq: Status: Active Protocol: Document 09/29/21 10:40 LRN (Rec: 09/29/21 12:08 LRN [id number]) Therapeutic Exercises Supine Exercises Hip AB Supine Exercise Name Hip AB Side right Comments cuing and assist for moving beyond midline. TA/BKFP Supine Exercise Name TA/BKFO Reps/Minutes 15 x 2 Comments phys & v cuing to keep TA tigjht with breathing & ex. Bridge Supine Exercise Name Midi Bridge Reps/Minutes 15x, rest, held clamshell due to R groin pain. Comments V cuing needed for proper breathing- no pain noted Sitting Exercises Trunk Ext Sitting Exercise Name Sitting arching back with crossed arms/elbows to ceiling Reps/Minutes 10 H x 10 Standing Exercises Humberto Shldr ext Standing Exercise Name Shoulder Ext (trunk ext strengthening) Side bilateral Reps/Minutes 15x 2, short rest btn sets Susie trunk rot Standing Exercise Name Punch outs with band attached out to side Side bilateral Equipment Used Lev2 Reps/Minutes 15x 2 sets Manual Therapy Treatment Soft Tissue Mobilization R hip AD Body Location R hip AD/Petineus Mobilization Type Strumming,Sustained Pressure, Trigger Point Release Intensity/Depth Moderate Body Position Supine Comments Full relaxation noted. PT-OP-R Modalities Start: 08/15/21 18:13 Freq: Status: Active Protocol: Document 08/31/21 09:57 LRN (Rec: 08/31/21 17:57 LRN [id number]) Hot Pack/Cold Pack Treatment Cold Pack Location R ASIS Patient Position Hooklying Treatment Duration (minutes) 15 Comments Cold Pack given during pt education treatment. PT-OP-T Assessment and Plan Start: 08/15/21 18:13 Freq: Status: Active Protocol: Document 09/29/21 10:40 LRN (Rec: 09/29/21 12:08 LRN [id number]) Physical Therapy Assessment Goals Two Impairment Sleep disturbed, toss and turns every hour. Impairment LBP rated 1/10 at night and on standing after sitting awhile . Short Term Goal (STG) Pt will be educated in different nighttime sleep positions and proper posture to minimize pain at night, as well as proper daily posture in sitting & standing. STG Duration 08/25/21: MET GOAL Powertrain Design Engineer Goal (LTG) Decrease low back pain in sidelie with pt able to sleep for no less than 2 hours at a time for 7-8 hrs total unless waking for reasons other than LBP. (09/14/21: sleeping 1-1.5 hrs at night). (09/29/21: Sleeping 1.5 hrs, sometimes 2 hrs but not often) . LTG Duration 10/16/21 (09/29/21: Improved, goal not met) One Impairment Pt lacks appropriate self care HEP Short Term Goal (STG) Pt will be educated in proper transfer & body mechanics to minimize onset of LBP. (08/25/21: Transfer training sit<>supine, sit<>stand. Proper body mechanics for bending, squatting, lifting ( front and at sides-moving feet ), and reaching. STG Duration MET GOAL Powertrain Design Engineer Goal (LTG) Pt will be independent in a self care HEP to improve lumbar ext & hip ext mobility, general lumbar/thoracic/hip mobility, and core/hip strengthening. (08/25/21: Stretches: Fig 4, Piriformis stretch (knee to opposite shoulder), lateral hip stretch. Strengthening: Hip AB (Clamshell). (08/29/21: Added I/S for TA tightening with HO issued for TA for awareness). (09/04/21: Added thoracic rotation in supine: arms side to side) (09/11/21: HEP: Standing Hip ext stretch) LTG Duration 10/16/21 (09/29/21: MET GOAL ) Assessment Summary Assessment Mild improvement overall in Mr Vaughan's LBP. The pt continues to have intermitttent back pain, but he is no longer sure it is waking him up at night. He has improved in the length of his sleep from 1/2 hour to now between 1/2 to 1 hour, and sometimes 2 hrs. He wakes regularly to use the bathroom and is not sure if he is waking because of his bladder or because of his back. Per Oswestry Disability index he has some improvement with a score of 2/50 (initially was 4 /50), indicating improvement for 4% to 2% disability. The pt has been placed on a HEP and to address his core and hip weakness to improve his back and pelvic stability, which should help minimize his back pain. It has been agreed today to discharge the pt to his independent home program for him to continue for improvement in his level of LBP and imiproved sleep ability. Physical Therapy Plan Discharge Physical Therapy Discharge Reasons Plateau in Progress Discharge Comments Pt LBP not fully resolved during the nighttime and pt complains of L upper back pain under scapula. Pt has HEP to continue progressing his core /pelvic stabilization. Pt is not sure is his back pain or waking during the night is more related to his bladder. If future physical therapy is needed for this pt we would be more than happy to work with this compliant individual. Thank you for your referral.
== END 2021-10-03 13:57 ==
LOC: PHYS 10:30
PROVIDERS: Family Provider Internal Medicine; PCP Internal Medicine; Referring Provider Orthopaedic Surgery; Visit Provider Orthopaedic Surgery
DX: S32.040D Wedge compression fracture of fourth lumbar vertebra, subsequent encounter for fracture with routine healing (principal); S39.012A Strain of muscle, fascia and tendon of lower back, initial encounter; M62.81 Muscle weakness (generalized); M40.00 Postural kyphosis, site unspecified
CPT/HCPCS: 97110; 97140; 97162; 97535

== ENCOUNTER 2021-10-29 08:42 | Emergency (ER) | payer OTHER, SELFPAY ==
[2021-10-29 08:49] VITALS: BP 147/81; PULSE 60; RESP 18; TEMP 36.9; O2SAT 98; BMI 30.5
[2021-10-29 08:55] VITALS: O2SAT 97
[2021-10-29 09:00] VITALS: BP 143/81; PULSE 60; O2SAT 98
[2021-10-29] MEDS: ERYTHROMYCIN OPHTH 1 GM OINT 1 APPLIC EYE-LEFT (09:09)
--- NOTE | 2021-10-29 09:09 | ED.GENADULT ---
HPI - General Adult General Chief complaint: Eye Problems Stated complaint: LEFT EYE SWOLLEN AND IRRITATED Time Seen by Provider: 10/29/21 08:54 Source: patient Mode of arrival: Ambulatory History of Present Illness HPI narrative: Patient is a 71-year-old male. No prior eye surgeries. Does wear corrective lenses. Is here for evaluation of 3 days of a swollen red itching left eye. He initially thought that it was allergies however symptoms have not been improving. There was no trauma. No foreign body sensation. He is having a watery eye which does make his vision somewhat blurry but otherwise no vision changes. Related Data Home Medications Medication Instructions Recorded Confirmed atenolol 50 mg tablet 50 mg PO DAILY 08/26/19 08/26/19 febuxostat 80 mg tablet 80 mg PO DAILY 08/26/19 08/26/19 furosemide 20 mg tablet 20 mg PO DAILY 08/26/19 08/26/19 lisinopril 10 mg tablet 10 mg PO DAILY 08/26/19 08/26/19 rosuvastatin 20 mg tablet 20 mg PO DAILY 08/26/19 08/26/19 warfarin 5 mg tablet 5 mg PO DAILY 08/26/19 08/26/19 Previous Rx's Medication Instructions Recorded erythromycin 5 mg/gram (0.5 %) eye 0.5 inch EYE-LEFT TID #3.5 g 10/29/21 ointment Allergies Allergy/AdvReac Type Severity Reaction Status Date / Time allopurinol Allergy Intermediate Verified 08/26/19 12:38 Review of Systems Constitutional Constitutional: Denies fever(s) and Denies headache(s) Eyes Eyes: Reports as per HPI and Reports system reviewed and no additional complaints, except as documented ENT Ears, Nose, Mouth, and Throat: Denies vertigo, Denies dizziness, Denies ear discharge and Denies headache(s) Integumentary/Breasts Skin/Breast: Reports system reviewed and no additional complaints, except as documented and Reports as per HPI Neurologic Neurologic: Denies vertigo, Denies dizziness and Denies headache(s) Hematologic/Lymphatic On Anticoagulants: No Allergic/Immunologic Allergic/Immunologic: Reports system reviewed and no additional complaints, except as documented and Reports as per HPI Patient History Medical History Gout Hypercholesterolemia Hypertension Left leg DVT Social History household members: spouse Smoking Status: Never smoker alcohol intake: current Smoking Status: Never smoker alcohol intake frequency: 3 or more drinks per day Substance Use Type: marijuana Exam Initial Vital Signs Initial Vital Signs: Vital Signs Temperature 98.5 F 10/29/21 08:49 Pulse Rate 60 10/29/21 08:49 Respiratory Rate 18 10/29/21 08:49 Blood Pressure 147/81 H 10/29/21 08:49 Pulse Oximetry 98 10/29/21 08:49 Const General: cooperative, comfortable and well developed HENTX Head: normal to inspection and normocephalic Ears: external ears normal, TM's normal bilaterally and EAC's normal Nose: external nose normal Face and sinus: normal facial exam Eyes Other: Right eye is unremarkable. Left eye does show swelling of the upper eyelid There is no surrounding erythema. Does have a watery discharge. No uptake of fluorescein noted. No foreign bodies noted. Does have chemosis. Pupils equal round reactive to light. Extraocular muscle intact. Resp Effort & Inspection: normal respiratory effort Auscultation: clear to auscultation bilaterally Cardio Rate: regular rate Rhythm: regular rhythm Skin Other: No erythema located on the skin around the left eye or on the left side of the face. There are no vesicles. No pustules. Neuro General: patient alert, patient awake and moves all extremities Course Orders Ordered: Discontinued Medications Erythromycin (Erythromycin Ophth 1 Gm Oint) 1 applic EYE-LEFT NOW ONE Stop: 10/29/21 09:01 Fluorescein Sodium (Fluorescein 1 Mg Strip) 1 mg EYE-BOTH NOW ONE Stop: 10/29/21 09:01 Vital Signs Vital signs: Vital Signs - 8 hr 10/29/21 08:49 Temperature 98.5 F Pulse Rate 60 Respiratory Rate 18 Blood Pressure 147/81 H Pulse Oximetry 98 Medical Decision Making MDM Narrative Medical decision making narrative: Patient does have watery red left eye with chemosis. No uptake with floor seen. No foreign body noted. Findings consistent with conjunctivitis. I have less suspicion that this is allergic attack and more suspicion that this is viral/bacterial. Was placed on antibiotic ointment. He will use as for the next couple days and he was given strict return precautions. He expressed understanding and agreement. Discharge Plan Departure Patient Disposition: Home Clinical Impression: Conjunctivitis Instructions: Conjunctivitis Activity Restrictions/Additional Instructions: Continue to take all of your medications as directed use the antibiotic ointment as directed. If your symptoms worsen or you start getting redness of the skin around your eye please return to the emergency department for further evaluation. Contact your primary doctor for a follow-up. Prescriptions: New erythromycin 5 mg/gram (0.5 %) ointment 0.5 inch EYE-LEFT TID Qty: 3.5 0RF No Action lisinopril 10 mg Tablet 10 mg PO DAILY 0RF atenolol 50 mg Tablet 50 mg PO DAILY 0RF rosuvastatin 20 mg Tablet 20 mg PO DAILY 0RF furosemide 20 mg Tablet 20 mg PO DAILY 0RF warfarin 5 mg Tablet 5 mg PO DAILY 0RF febuxostat 80 mg Tablet 80 mg PO DAILY 0RF Referrals: Porter Munoz MD [Primary Care Provider] -
[2021-10-29] MEDS: FLUORESCEIN 1 MG STRIP EYE-BOTH (09:11)
--- NOTE | 2021-10-29 09:12 | PC.NURSE ---
will defer visual acuity for short time till oinment application clears then complete that exam
--- NOTE | 2021-10-29 09:25 | PC.NURSE ---
pt has chronic limited vision in his right eye vision right eye only with glasses 20/70 but pt reports that is very normal and his baseline. vision with left eye 20/40 with glasses and bilateral eyes 20/40 with glasses.
== END 2021-10-29 09:25 | disposition home or self-care (01) ==
PROVIDERS: Emergency Provider Emergency Medicine; Family Provider Internal Medicine; PCP Internal Medicine
DX: H10.9 Unspecified conjunctivitis (principal)
CPT/HCPCS: 99282

== ENCOUNTER → 2022-10-18 09:28 | Outpatient (CLI) | payer OTHER, SELFPAY ==
[2022-10-18 10:00] LABS: INR 2.8 (0.9-1.3); Prothrombin Time 32.3 SECONDS (10.1-12.7)
[2022-10-18 10:01] LABS: Hematocrit 42.3 % (41-53); Hemoglobin 14.6 g/dL (13.5-17.5); Mean Corpuscular HGB Conc 34.6 % (30-36); Mean Corpuscular Hemoglobin 34.5 PG (26-34); Mean Corpuscular Volume 99.9 fL (80-100); Platelet Count 191 X10^3/uL (150-400); Red Blood Cell Count 4.24 X10^6/uL (4.5-5.9); Red Cell Distribution Width 13.8 % (11.6-14.8); White Blood Cell Count 5.7 X10^3/uL (4.5-11.0)
[2022-10-18 10:35] LABS: Alanine Aminotransferase 22 IU/L (<50); Albumin Globulin Ratio 1.3 (1.0-2.8); Alkaline Phosphatase 58 U/L (38-126); Aspartate Aminotransferase 24 IU/L (17-59); BUN Creatinine Ratio 17.8 (6-22); Bilirubin Total 0.7 mg/dL (0.2-1.3); Blood Urea Nitrogen 24 mg/dL (9-20); Carbon Dioxide 26 mmol/L (22-32); Chloride 107 mmol/L (98-107); Cholesterol 190 mg/dL (140-199); Estimated Glomerular Filt Rate 55 mL/min (>60); Glucose 91 mg/dL (80-110); HDL Cholesterol 83 mg/dL (40-60); HEMOLYSIS < 15 (0-50); LDL Cholesterol Calculated 76 mg/dL (<100); Potassium 4.5 mmol/L (3.4-5.1); Sodium 140 mmol/L (137-145); Triglycerides 154 mg/dL (35-150)
[2022-10-18 10:58] LABS: TSH w/ Reflex to FT4 1.24 uIU/mL (0.47-4.68)
[2022-10-18 10:59] LABS: Prostate Specific Antigen 5.48 ng/mL (0.10-4.00)
[2022-10-18 11:18] LABS: Vitamin B12 272 pg/mL (239-931)
[2022-10-21 06:19] LABS: Calcium 9.3 mg/dL (8.6-10.2); Parathyroid Hormone, Intact 82 pg/mL (15-65)
== END ==
PROVIDERS: Family Provider Internal Medicine; PCP Internal Medicine; Referring Provider Internal Medicine; Visit Provider Internal Medicine
DX: E53.8 Deficiency of other specified B group vitamins (principal); I48.20 Chronic atrial fibrillation, unspecified; E78.2 Mixed hyperlipidemia; N18.32 Chronic kidney disease, stage 3b; I10 Essential (primary) hypertension; Z79.01 Long term (current) use of anticoagulants
CPT/HCPCS: 36415; 80053; 80061; 82310; 82607; 83970; 84153; 84443; 85027; 85610

== ENCOUNTER → 2022-12-03 10:19 | Outpatient (CLI) | payer OTHER, SELFPAY ==
[2022-12-03 12:08] LABS: Uric Acid 3.3 mg/dL (3.5-8.5)
== END ==
PROVIDERS: Family Provider Internal Medicine; PCP Internal Medicine; Referring Provider Physician Assistant Medical; Visit Provider Physician Assistant Medical
DX: M1A.9XX1 Chronic gout, unspecified, with tophus (tophi) (principal)
CPT/HCPCS: 36415; 84550

== ENCOUNTER → 2023-01-25 14:53 | Outpatient (CLI) | payer OTHER, SELFPAY ==
--- NOTE | 2023-01-25 14:54 | DI.RAD.S_ITS ---
PROCEDURE: XR HIP W PEL IF DONE RT 2V INDICATIONS: right hip pain, no trauma TECHNIQUE: AP pelvis with lateral view(s) of the right hip(s). COMPARISON: None. FINDINGS: Bones: No fractures or dislocations. Pelvic ring appears intact. No suspicious bony lesions. There is moderate to severe superior joint space narrowing seen of the right hip, with associated remodeling changes with subchondral sclerosis and osteophyte formation. Moderate left hip degenerative change can be seen. Age-appropriate lower lumbar spine degenerative changes are noted. Soft tissues: The visualized bowel gas pattern is normal. No suspicious soft tissue calcifications. IMPRESSION: There is moderate to severe right hip and moderate left hip degenerative change. Dictated by: Richi Lyman M.D. on 01/25/2023 at 16:26 Approved by: Richi Lyman M.D. on 01/25/2023 at 16:27
== END ==
PROVIDERS: Family Provider Internal Medicine; PCP Internal Medicine; Referring Provider Internal Medicine; Visit Provider Internal Medicine
DX: M16.11 Unilateral primary osteoarthritis, right hip (principal)
CPT/HCPCS: 73502

== ENCOUNTER → 2023-02-25 15:52 | Outpatient (CLI) | payer OTHER, SELFPAY ==
[2023-02-25 16:49] LABS: Hematocrit 42.3 % (41-53); Hemoglobin 14.7 g/dL (13.5-17.5); Mean Corpuscular HGB Conc 34.6 % (30-36); Mean Corpuscular Hemoglobin 34.2 PG (26-34); Mean Corpuscular Volume 98.7 fL (80-100); Platelet Count 211 X10^3/uL (150-400); Red Blood Cell Count 4.29 X10^6/uL (4.5-5.9); Red Cell Distribution Width 13.4 % (11.6-14.8); White Blood Cell Count 6.8 X10^3/uL (4.5-11.0)
[2023-02-25 17:14] LABS: Alanine Aminotransferase 18 IU/L (<50); Albumin 3.9 g/dL (3.5-5.0); Albumin Globulin Ratio 1.4 (1.0-2.8); Alkaline Phosphatase 58 U/L (38-126); Amylase 66 U/L (30-110); Aspartate Aminotransferase 22 IU/L (17-59); BUN Creatinine Ratio 16.2 (6-22); Bilirubin Total 0.6 mg/dL (0.2-1.3); Blood Urea Nitrogen 23 mg/dL (9-20); Calcium 9.9 mg/dL (8.4-10.2); Carbon Dioxide 22 mmol/L (22-32); Chloride 103 mmol/L (98-107); Estimated Glomerular Filt Rate 52 mL/min (>60); Globulin 2.8 g/dL (1.7-4.1); Glucose 97 mg/dL (80-110); HEMOLYSIS < 15 (0-50); Lipase 186 U/L (23-300); Potassium 3.9 mmol/L (3.4-5.1); Sodium 137 mmol/L (137-145); Total Protein 6.7 g/dL (6.3-8.2)
== END ==
PROVIDERS: Family Provider Internal Medicine; PCP Internal Medicine; Referring Provider Internal Medicine; Visit Provider Internal Medicine
DX: R10.9 Unspecified abdominal pain (principal); R63.4 Abnormal weight loss
CPT/HCPCS: 80053; 82150; 83690; 85027

== ENCOUNTER → 2023-03-11 11:11 | Outpatient (CLI) | payer OTHER, SELFPAY ==
[2023-03-11 12:19] LABS: Prothrombin Time 62.2 SECONDS (10.1-12.7)
[2023-03-11 12:21] LABS: INR 5.3 (0.9-1.3)
== END ==
PROVIDERS: Family Provider Internal Medicine; PCP Internal Medicine; Referring Provider Internal Medicine; Visit Provider Internal Medicine
DX: I87.2 Venous insufficiency (chronic) (peripheral) (principal); Z79.01 Long term (current) use of anticoagulants
CPT/HCPCS: 36415; 85610

== ENCOUNTER → 2023-03-12 11:02 | Outpatient (CLI) | payer OTHER, SELFPAY ==
--- NOTE | 2023-03-12 11:03 | DI.CT.S_ITS ---
PROCEDURE: CT KIDNEY URETER BLADDER (KUB) INDICATIONS: abd pain TECHNIQUE: Axial sections were acquired from the lung bases to the pubic symphysis. Coronal and sagittal reformats were performed. For radiation dose reduction, the following was used: automated exposure control, adjustment of mA and/or kV according to patient size. COMPARISON: [facility], MR, MR LUMBAR SPINE WO CON, 06/10/2021, 12:59. US, RENAL COMPLETE, 08/20/2017, 13:12. FINDINGS: Image quality: Excellent. Lung bases: Unremarkable. Heart: Normal size. Severe coronary artery calcification. URINARY: Right Kidney: No stones or hydronephrosis. Right Ureter: No hydroureter. Left Kidney: No stones or hydronephrosis. Left Ureter: No hydroureter. Bladder: Normal wall thickness. No stones. ABDOMEN: Liver: Unremarkable. Gallbladder: There is sludge or gravel stones in gallbladder. No gallbladder wall thickening or pericholecystic fluid. Biliary ducts: Unremarkable. Pancreas: Unremarkable. Spleen: Unremarkable. Adrenal Glands: Unremarkable. Stomach and Bowel: Stomach, small bowel loops, and colon are unremarkable. Normal appendix. Peritoneum: No abnormal intraperitoneal fluid. No free air. Ventral Wall: No hernia. Abdominal Nodes: No enlarged retroperitoneal or mesenteric lymph nodes. Vessels: Aorta and inferior vena cava are normal in size. Moderate atherosclerosis PELVIS: Pelvic Organs: Prostate is enlarged. Pelvic Nodes: Unremarkable. Miscellaneous: Small fat containing inguinal hernias are seen. Bones: Chronic severe compression fracture of L4. IMPRESSION: 1. No renal stone or hydronephrosis. 2. No acute abnormalities in abdomen or pelvis. A cause for abdominal pain is not identified on CT. 3. Question small gallstones versus gallbladder sludge. 4. Moderate atherosclerosis. 5. Chronic severe compression fracture of L4 Dictated by: Fede Fulton M.D. on 03/12/2023 at 12:45 Approved by: Fede Fulton M.D. on 03/12/2023 at 12:52
== END ==
PROVIDERS: Family Provider Internal Medicine; PCP Internal Medicine; Referring Provider Internal Medicine; Visit Provider Internal Medicine
DX: N18.32 Chronic kidney disease, stage 3b (principal); R10.9 Unspecified abdominal pain; R63.4 Abnormal weight loss; M48.56XA Collapsed vertebra, not elsewhere classified, lumbar region, initial encounter for fracture; I25.10 Atherosclerotic heart disease of native coronary artery without angina pectoris; Z86.010 Personal history of colon polyps
CPT/HCPCS: 74176

== ENCOUNTER → 2023-03-29 11:28 | Outpatient (CLI) | payer OTHER, SELFPAY ==
[2023-03-29 12:29] LABS: INR 4.5 (0.9-1.3); Prothrombin Time 52.1 SECONDS (10.1-12.7)
== END ==
PROVIDERS: Family Provider Internal Medicine; PCP Internal Medicine; Referring Provider Internal Medicine; Visit Provider Internal Medicine
DX: I82.409 Acute embolism and thrombosis of unspecified deep veins of unspecified lower extremity (principal)
CPT/HCPCS: 36415; 85610

== ENCOUNTER → 2023-04-17 11:32 | Outpatient (CLI) | payer OTHER, SELFPAY ==
[2023-04-17 14:09] LABS: Alanine Aminotransferase 20 IU/L (<50); Albumin 4.2 g/dL (3.5-5.0); Albumin Globulin Ratio 1.4 (1.0-2.8); Alkaline Phosphatase 49 U/L (38-126); Aspartate Aminotransferase 24 IU/L (17-59); BUN Creatinine Ratio 24.4 (6-22); Bilirubin Total 0.8 mg/dL (0.2-1.3); Blood Urea Nitrogen 31 mg/dL (9-20); Calcium 10.2 mg/dL (8.4-10.2); Carbon Dioxide 21 mmol/L (22-32); Chloride 102 mmol/L (98-107); Estimated Glomerular Filt Rate 59 mL/min (>60); Glucose 91 mg/dL (80-110); HEMOLYSIS < 15 (0-50); Potassium 4.4 mmol/L (3.4-5.1); Sodium 134 mmol/L (137-145); Total Protein 7.2 g/dL (6.3-8.2)
[2023-04-17 20:22] LABS: Hematocrit 43.3 % (41-53); Hemoglobin 14.5 g/dL (13.5-17.5); Mean Corpuscular HGB Conc 33.5 % (30-36); Mean Corpuscular Hemoglobin 34.4 PG (26-34); Mean Corpuscular Volume 102.7 fL (80-100); Platelet Count 224 X10^3/uL (150-400); Red Blood Cell Count 4.22 X10^6/uL (4.5-5.9); Red Cell Distribution Width 14.2 % (11.6-14.8); White Blood Cell Count 7.4 X10^3/uL (4.5-11.0)
== END ==
PROVIDERS: Family Provider Internal Medicine; PCP Internal Medicine; Referring Provider Internal Medicine; Visit Provider Internal Medicine
DX: R97.20 Elevated prostate specific antigen [PSA] (principal); R10.9 Unspecified abdominal pain; R63.4 Abnormal weight loss
CPT/HCPCS: 36415; 80053; 84153; 85027

== ENCOUNTER 2023-05-10 13:31 | Day surgery (SDC) | payer OTHER, SELFPAY ==
--- NOTE | 2023-05-10 | PATH_ITS ---
[facility] Accession Number: [id number] No. of containers..01 Tissue . 01 Material submitted: . gastrointestinal site - GASTRIC BIOPSY . 01 Diagnosis: Gastric Biopsy: Helicobacter pylori gastritis. Helicobacter pylori organisms are identified on immunohistochemical evaluation. No intestinal metaplasia, dysplasia or malignancy. MRV 05/21/2023 1337 Local . 01 Electronically signed: . Allison Snell MD, Pathologist NPI- [id number] . 01 Gross description: . GASTRIC BIOPSY: Received in formalin are 2 fragment(s) of jaeger, soft tissue measuring 0.2 x 0.2 x 0.1 cm to 0.3 x 0.3 x 0.2 cm submitted entirely in 1 cassette(s) /GENEVA 05/13/20232009 Local . 01 Microscopic: . An immunohistochemical stain was performed to evaluate for Helicobacter organisms and is negative. The control stain showed appropriate reactivity. . * This test was developed and its performance characteristics determined by [facility]. It has not been cleared or approved by the U.S. Food and Drug Administration. The FDA has determined that such clearance or approval is not necessary. This test is used for clinical purposes. It should not be regarded as investigational or for research. . 01 Pathologist provided ICD-10: B96.81 . 01 CPT . 949995, I58981 Specimen Comment: A courtesy copy of this report has been sent to [phone] Performed at: 01 [facility] [address] [place] [address], [place], [place] [id number] MD Jay Jay Flores MD Phone: [phone]
[2023-05-10 14:27] VITALS: BMI 29.1
[2023-05-10] MEDS: LACTATED RINGERS 1,000 ML 42 ML IV (14:43)
[2023-05-10 14:44] VITALS: BP 157/74; PULSE 69; RESP 18; TEMP 36.5; O2SAT 100
--- NOTE | 2023-05-10 14:52 | P.HP_ITS ---
History of Present Illness History of Present Illness Date Patient Seen: 05/10/23 Chief complaint: EKG w/poss bx Narrative: 73-year-old man history of alcoholism and chronic anticoagulation here for diagnostic esophagoduodenoscopy. Reports for the past several months early satiety and epigastric pain. He has never had a prior EGD. Symptoms have improved but not resolved with Pepcid. [facility], LAT[facility] Medical History (Updated 05/10/23 @ 14:53 by Misael Zamudio MD) Elevated PSA Osteoarthritis of right hip Spinal stenosis, lumbar region without neurogenic claudication Venous insufficiency of left leg History of DVT (deep vein thrombosis) Obesity (BMI 30.0-34.9) Alcohol use disorder Secondary hyperparathyroidism Polyneuropathy, unspecified Herpes keratitis Stage 3b chronic kidney disease (CKD) History of colonic polyps (~2009) Mixed hyperlipidemia Essential hypertension Chronic anticoagulation Hypertension Hypercholesterolemia Gout (~2009) Surgical History Anesthesia Fatty tumor (~1979) Family History Father Cancer History of heart disease Hypertension Mother Cancer Hypertension Brother History of heart disease Hypertension Sister Cancer Social History household members: spouse Smoking Status: Never smoker alcohol intake: current Meds Home Medications and Allergies Home Medications Medication Instructions Recorded Confirmed Type febuxostat 80 mg tablet 80 mg PO DAILY 08/26/19 05/10/23 History atenolol 25 mg tablet 25 mg PO DAILY #90 tabs 10/17/22 05/10/23 Rx furosemide 20 mg tablet 20 mg PO DAILY #90 tabs 10/17/22 05/10/23 Rx lisinopril 10 mg tablet 10 mg PO DAILY #90 tabs 10/17/22 05/10/23 Rx rosuvastatin 20 mg tablet 20 mg PO DAILY #90 tabs 10/17/22 05/10/23 Rx valacyclovir 500 mg tablet 500 mg PO DAILY 10/17/22 05/10/23 History warfarin 5 mg tablet 5 mg PO DAILY #90 tabs 10/17/22 05/10/23 Rx Allergies Allergy/AdvReac Type Severity Reaction Status Date / Time allopurinol Allergy Intermediate Verified 05/10/23 14:19 tramadol AdvReac Severe Agitated Verified 05/10/23 14:19 Exam Vital Signs (past 8 hours): - 05/10/23 14:44 Temperature 97.7 F Pulse Rate 69 Respiratory Rate 18 Blood Pressure 157/74 H Pulse Oximetry 100 Oxygen Delivery Method Room Air Oxygen Delivery Method Room Air Narrative Exam Narrative: General adult man alert oriented no acute distress Chest nonlabored respiration Extremities warm well perfused Assessment & Plan Assessment and plan (1) Early satiety: Status: Acute Assessment & Plan narrative: 73-year-old man PMH alcoholism with new onset epigastric pain and early satiety. Recommend proceeding with diagnostic esophagoduodenoscopy. Overview of the procedure discussed. Procedural risks including but not limited to hemorrhage, intestinal injury were discussed. Questions have been answered he is in agreement with this plan. He provides his written and verbal consent to proceed.
[2023-05-10 15:06] VITALS: BP 120/76; PULSE 85; RESP 16; TEMP 36.2; O2SAT 98
[2023-05-10 15:10] VITALS: BP 122/75; PULSE 80; RESP 16; O2SAT 100
--- NOTE | 2023-05-10 15:12 | PM.OP.EGD ---
Operative Date/Time/Diagnoses Date of procedure: 05/10/23 Time of procedure: 15:13 Pre-op diagnosis: Early satiety, weight loss Post-op diagnosis: other (Gastritis) Procedure & Clinicians Study performed: Diagnostic Esophagoduodenoscopy Same procedure as scheduled: Yes Indications: Early satiety, weight loss Surgeon: Misael Zamudio Procedure Notes Procedure in detail: The history and physical was performed/updated and the patient is ASA class is 2. The procedure was discussed in detail with the patient. Potential risks complications including infection, bleeding, missed diagnosis, perforation, need for surgery, and were explained. Their questions were answered and informed consent was obtained. Patient placed in left lateral decubitus position. Time out was performed. Procedural sedation was administered by Anesthesia. A bite block was placed. the scope was inserted into the mouth and advanced through the esophagus and into the stomach. The pylorus was intubated and the duodenum was examined to the 2nd portion. The scope was then withdrawn into the stomach and was retroflexed. The stomach was decompressed and scope was withdrawn slowly through the esophagus. FINDINGS -mild gastritis. No distinct ulcer or active hemorrhage. Biopsy of stomach performed with forceps -small hiatal hernia -no gastric or esophageal masses -Z-line 40 cm from incisors The patient tolerated the procedure well and will be discharged when they meet criteria. Specimen(s): other (Gastric) Impression: Gastritis Post-procedure Plan for aftercare: Continue famotidine 20 mg daily
[2023-05-10 15:26] VITALS: BP 122/75; PULSE 80; RESP 16; O2SAT 98
[2023-05-10 15:28] VITALS: BP 122/76; PULSE 74; RESP 16; TEMP 36.2; O2SAT 98
== END 2023-05-10 16:01 | disposition home or self-care (01) ==
PROVIDERS: Family Provider Internal Medicine; PCP Internal Medicine; Referring Provider Surgery; Visit Provider Surgery
PROC: 0DJ08ZZ Inspection of Upper Intestinal Tract, Via Natural or Artificial Opening Endoscopic (ICD-10-PCS; CPT 43235; principal; 2023-05-10 13:30)
DX: K29.60 Other gastritis without bleeding (principal); B96.81 Helicobacter pylori [H. pylori] as the cause of diseases classified elsewhere; K44.9 Diaphragmatic hernia without obstruction or gangrene
CPT/HCPCS: 43239; 85610; J2704

== ENCOUNTER → 2023-09-04 11:25 | Outpatient (CLI) | payer OTHER, SELFPAY ==
[2023-09-04 12:33] LABS: INR 1.3 (0.9-1.3)
== END ==
LOC: LAB 11:27
PROVIDERS: Family Provider Internal Medicine; PCP Internal Medicine; Referring Provider Internal Medicine Hematology & Oncology; Visit Provider Internal Medicine Hematology & Oncology
DX: I82.512 Chronic embolism and thrombosis of left femoral vein (principal)
CPT/HCPCS: 36415; 85610

== ENCOUNTER → 2024-03-26 12:57 | Outpatient (CLI) | payer OTHER, SELFPAY | PROVIDERS: Family Provider Internal Medicine; PCP Internal Medicine; Visit Provider Nurse Practitioner Family | DX: T14.8XXA Other injury of unspecified body region, initial encounter (principal) | CPT/HCPCS: 87070; 87075; 87205 ==

== ENCOUNTER → 2024-11-30 10:46 | Outpatient (CLI) | payer MEDICARE, SELFPAY ==
[2024-11-30 11:28] LABS: Hematocrit 27.3 % (41-53); Hemoglobin 9.3 g/dL (13.5-17.5); Mean Corpuscular HGB Conc 34.1 % (30-36); Mean Corpuscular Hemoglobin 38.8 PG (26-34); Mean Corpuscular Volume 113.8 fL (80-100); Platelet Count 178 X10^3/uL (150-400); Red Cell Distribution Width 14.7 % (11.6-14.8); White Blood Cell Count 5.1 X10^3/uL (4.5-11.0)
[2024-11-30 11:47] LABS: Erythrocyte Sedimentation Rate 27 MM/HR (0-15)
[2024-11-30 11:55] LABS: Alanine Aminotransferase 30 IU/L (<50); Albumin 3.9 g/dL (3.5-5.0); Albumin Globulin Ratio 1.6 (1.0-2.8); Alkaline Phosphatase 53 U/L (38-126); Aspartate Aminotransferase 40 IU/L (17-59); BUN Creatinine Ratio 17.6 (6-22); Bilirubin Total 0.7 mg/dL (0.2-1.3); Blood Urea Nitrogen 36 mg/dL (9-20); C-Reactive Protein Quant < 0.5 mg/dL (<1.0); Calcium 9.5 mg/dL (8.4-10.2); Carbon Dioxide 16 mmol/L (22-32); Chloride 107 mmol/L (98-107); Cholesterol 189 mg/dL (140-199); Estimated Glomerular Filt Rate 33 mL/min (>60); Globulin 2.4 g/dL (1.7-4.1); Glucose 105 mg/dL (70-99); HEMOLYSIS < 15 (0-50); Potassium 4.1 mmol/L (3.4-5.1); Sodium 135 mmol/L (137-145); Total Protein 6.3 g/dL (6.3-8.2); Triglycerides 84 mg/dL (35-150)
[2024-11-30 12:04] LABS: HDL Cholesterol 151 mg/dL (40-60); LDL Cholesterol Calculated 21 mg/dL (<100)
[2024-11-30 12:22] LABS: Prostate Specific Antigen 5.54 ng/mL (0.10-4.00)
[2024-12-01 06:37] LABS: Complement C3 109 mg/dL (82-167)
[2024-12-02 23:36] LABS: Complement Total CH50 > 60 U/mL (>41)
[2024-12-03 11:28] LABS: ANA Screen, IFA Negative (.)
== END ==
PROVIDERS: Family Provider Internal Medicine; PCP Internal Medicine; Referring Provider Internal Medicine; Visit Provider Internal Medicine
DX: N17.9 Acute kidney failure, unspecified (principal); E78.2 Mixed hyperlipidemia; N18.32 Chronic kidney disease, stage 3b
CPT/HCPCS: 36415; 80053; 80061; 84153; 85027; 85651; 86038; 86140; 86160; 86162

== ENCOUNTER → 2024-12-09 09:18 | Outpatient (CLI) | payer MEDICARE, SELFPAY ==
--- NOTE | 2024-12-09 09:20 | DI.US.S_ITS ---
PROCEDURE: US RENAL COMPLETE INDICATIONS: acute kidney injury TECHNIQUE: Real-time scanning was performed of the kidneys and bladder, with image documentation. COMPARISON: [facility], CT, CT KIDNEY URETER BLADDER (KUB), 03/12/2023, 11:12. FINDINGS: Kidneys: Kidneys are normal in size. Right kidney measures 9.7 cm long; left kidney measures 9.5 cm long. Right renal cortical thickness is 0.5 cm; left renal cortical thickness is 0.4 cm. Renal cortical echotexture is normal. No hydronephrosis or nephrolithiasis. No suspicious solid mass lesions. Multiple simple bilateral renal cysts can be seen. Bladder: Pre-void bladder volume is 31 mL. Post-void residual is 25 mL. Pre- void images demonstrate no intraluminal masses or stones. On pre-void images, both ureteral jets are noted with color Doppler interrogation. (Of note, ureteral jets may not be detectable in up to 25% of cases due to insufficient differences in specific gravity between ureteral and bladder urine). Miscellaneous: No free pelvic fluid. The prostate is prominent, measuring up to 5.3 cm. IMPRESSION: No acute kidney abnormality can be seen. No hydronephrosis. Thinning of the renal cortex can be seen on both sides. Mild postvoid residual, 25 cc. Dictated by: Richi Lyman M.D. on 12/09/2024 at 9:35 Approved by: Richi Lyman M.D. on 12/09/2024 at 9:36
== END ==
LOC: US 09:19
PROVIDERS: Family Provider Internal Medicine; PCP Internal Medicine; Referring Provider Internal Medicine; Visit Provider Internal Medicine
DX: N17.9 Acute kidney failure, unspecified (principal); N18.32 Chronic kidney disease, stage 3b; N28.1 Cyst of kidney, acquired; R39.198 Other difficulties with micturition
CPT/HCPCS: 76770